=== PATIENT | female | born 1950 | race American Indian/Alaskan Native ===

== ENCOUNTER 2017-12-05 06:42 | Observation (INO) | payer MEDICARE ==
[2017-08-16 09:40] VITALS: BMI 36.8
[2017-12-05] MEDS ORDERED: Propofol 10 mg/ml Inj (20 ML) ONE ×4 (08:21→09:47)
--- NOTE | 2017-12-05 08:27 | CP.SDSHP ---
Same Day Surgery H & P - History Proposed Procedure: Screening colonoscopy Pre-Op Diagnosis: Screening for colorectal cancer - Previous Medical/Surgical History Cardiac: Hypertension Endocrine/Metabolic: Diabetes Comments: Anemia, hyperlipidemia, carcinoma right kidney Previous Surgical History: Cardiac cath with stents, rotator cuff - Allergies Allergies: Allergies levofloxacin [From Levaquin] Allergy (Verified 12/02/17 12:20) RASH morphine Allergy (Verified 12/02/17 12:20) ANAPHYLAXIS shellfish derived Allergy (Verified 12/02/17 12:20) RASH DYE Allergy (Uncoded 12/02/17 12:20) RASH - Current Medications Current Medications: See reconciliation sheet - Physical Exam General Appearance: WD WN female in NAD Vital Signs: Vital Signs 12/05/17 07:14 Temperature 97 F L Pulse Rate 72 Respiratory 19 Rate Blood Pressure 232/95 H O2 Sat by Pulse 97 Oximetry Mental Status: Alert & Oriented x3 Neuro: WNL Heart: WNL Lungs: WNL GI: WNL - {Optional Preform as Required} Abdomen: WNL - Impression Impression: Screening for colorectal cancer Pt. Evaluated Today:Candidate for Anesthesia & Procedure: Yes - Date & Time Date: 12/05/17 Time: 08:30 Short Stay Discharge - Short Stay Discharge Admitting Diagnosis/Reason for Visit: CHANGE IN BOWEL HABITS Disposition: HOME/ ROUTINE Referrals: Jhony Olivas MD [Primary Care Provider] -
[2017-12-05] MEDS ORDERED: Labetalol 5mg/ml (4ml) IVP ONE (08:51)
[2017-12-05] MEDS ORDERED: Lidocaine 2% Jelly (5 ml) TOP ONE (10:32)
--- NOTE | 2017-12-05 11:47 | CT ---
Date of service: 12/05/2017 PROCEDURE: CT Abdomen and Pelvis without intravenous contrast HISTORY: Abdominal distention post colonoscopy COMPARISON: None. TECHNIQUE: Contiguous images were obtained from the domes of the diaphragms to the upper thighs without the administration of intravenous contrast. Oral contrast was not administered. Radiation dose: Total exam DLP = 1016.5 mGy-cm. This CT exam was performed using one or more of the following dose reduction techniques: Automated exposure control, adjustment of the mA and/or kV according to patient size, and/or use of iterative reconstruction technique. FINDINGS: LOWER THORAX: Cardiomegaly. Coronary arterial and valvular calcifications. No focal consolidation or pleural effusion. Left lower lobe scarring. LIVER: Unremarkable. No gross lesion or ductal dilatation. GALLBLADDER AND BILE DUCTS: Unremarkable. PANCREAS: Unremarkable. No gross lesion or ductal dilatation. SPLEEN: Unremarkable. ADRENALS: Unremarkable. No mass. KIDNEYS AND URETERS: Right interpolar 3.9 x 3.5 x 3.9 cm heterogeneously hyperdense mass. Exophytic left lower pole 2.5 x 2.6 x 2.0 cm slightly hyperdense mass No hydronephrosis. No solid mass. VASCULATURE: Calcific atherosclerosis. No aortic aneurysm. BOWEL: Small sigmoid submucosal lipoma. No obstruction. No gross mural thickening. APPENDIX: No findings to suggest acute appendicitis. PERITONEUM: Fat containing umbilical hernia. No free fluid. No free air. LYMPH NODES: Unremarkable. No enlarged lymph nodes. BLADDER: Unremarkable. REPRODUCTIVE: Unremarkable. BONES: No acute fracture. Multilevel spinal degenerative changes. OTHER FINDINGS: None. IMPRESSION: Right interpolar 3.9 x 3.5 x 3.9 cm heterogeneously hyperdense mass. Multiphasic CT/MRI ( "renal mass protocol" ) is recommended for further evaluation. No pericolonic stranding. No evidence of perisplenic hematoma. Additional findings as above.
[2017-12-05] MEDS ORDERED: Aspirin 325 mg EC Tablets PO SCH (16:45)
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
[2017-12-05] MEDS ORDERED: FATTY ACIDS PO SCH (18:00)
[2017-12-05] MEDS ORDERED: OMEGA PO SCH (18:00)
[2017-12-05] MEDS ORDERED: Dextrose 50% SYRINGE Inj (50 ml) IVP PRN (18:04)
[2017-12-05] MEDS ORDERED: Dextrose 50% SYRINGE Inj (50 ml) IV PRN (18:04)
[2017-12-05] MEDS ORDERED: Glucagon Recombinant 1 mg Inj IM PRN (18:04)
[2017-12-05] MEDS: Divalproex 500 mg DR Tab PO SCH (18:49)
[2017-12-05 19:47] LABS: BASO % 0.5 % (0.0-2.0); EOS # 0.1 K/uL (0.0-0.7); HEMOGLOBIN 11.1 g/dL (11.0-16.0); LYMPH # 1.2 K/uL (1.0-4.3); LYMPH % 15.3 % (20.0-40.0); MEAN CELL VOLUME 84.6 fL (81.0-99.0); MEAN CORPUSCULAR HEMOGLOBIN 27.6 pg (27.0-31.0); MEAN CORPUSCULAR HGB CONC 32.6 g/dL (33.0-37.0); MEAN PLATELET VOLUME 8.4 fL (7.2-11.7); MONO # 0.4 K/uL (0.0-0.8); MONO % 5.2 % (0.0-10.0); NEUT # 6.1 K/uL (1.8-7.0); RBC 4.04 Mil/uL (3.80-5.20); RED CELL DISTRIBUTION WIDTH 22.8 % (11.5-14.5); WHITE BLOOD COUNT 7.8 K/uL (4.8-10.8)
[2017-12-05 20:02] LABS: ALB/GLOB RATIO 1.1 (1.0-2.1); ALBUMIN 3.5 g/dL (3.5-5.0); CALCIUM 9.4 mg/dl (8.6-10.4)
[2017-12-05] MEDS: (Novolog) Insulin Aspart, Recombinant 100 u/ml 10 ml vial SC SCH (21:32)
[2017-12-05] MEDS ORDERED: (Novolin R) Insulin Human Regular 100 units/ml vial SC SCH (22:00)
--- NOTE | 2017-12-05 23:08 | CP.PCM.CON ---
History of Present Illness - History of Present Illness History of Present Illness: 67 yo F w/ pmh of htn, CAD s/p stents (06/2016), R renal cell CA s/p cryoablation , DM and CKD IIIB/IV, presented for colonoscopy earlier today, found to have severely elevated systolic BP following the procedure and subsequently admitted for hypertensive urgency; nephrology being consulted for the same; Patient is well known to our outpatient service, seen in the office just 3 days ago; she had just returned from a trip to [place] that same day and was found to have BP 198/78 that she attributed to not having taken all of her meds as well as her rushing to get to the appointment; today, she reports not having taken her torsemide and valsartan today; she also reports getting into a verbal altercation with transportation dispatch manager on her way to the hospital this morning; she did have a headache following the colonoscopy which has mostly abated; patient denies any chest pain, palpitations or increased dyspnea; Review of Systems - Constitutional Constitutional: absent: Anorexia - EENT Eyes: absent: Change in Vision Nose/Mouth/Throat: absent: Sinus Pain, Sinus Pressure - Cardiovascular Cardiovascular: As Per HPI, Leg Edema - Respiratory Respiratory: absent: Cough - Gastrointestinal Additional comments: profuse BM yesterday after consuming bowel prep for colonscopy - Genitourinary Genitourinary: Urinary Frequency. absent: Dysuria - Musculoskeletal Additional comments: chronic shoulder pain, only taking tylenol; - Integumentary Integumentary: absent: Pruritus, Rash - Neurological Neurological: As Per HPI - Psychiatric Psychiatric: Mood Swings. absent: Anxiety Past Patient History - Infectious Disease Hx of Infectious Diseases: None - Tetanus Immunizations Tetanus Immunization: Unknown - Past Medical History & Family History Past Medical History?: Yes Pertinent Family History: mother was ESRD on dialysis - Past Social History Smoking Status: Never Smoked Alcohol: None Drugs: Denies - CARDIAC Hx Cardiac Disorders: Yes (CAD STENTS) Hx Hypercholesterolemia: Yes Hx Hypertension: Yes Hx Peripheral Edema: Yes (+2 ble pitting) Hx Peripheral Vascular Disease: Yes - PULMONARY Hx Respiratory Disorders: Yes Hx Asthma: Yes Hx Chronic Obstructive Pulmonary Disease (COPD): Yes Hx Pneumonia: Yes (11 yrs ago) Hx Sleep Apnea: Yes (cpap) Hx Tuberculosis: Yes (age 4) - NEUROLOGICAL Hx Neurological Disorder: Yes Hx Paralysis: No Hx Seizures: Yes (LAST AGE 19) Hx Transient Ischemic Attacks (TIA): Yes (07/2015 No hospitilization) - HEENT Hx HEENT Problems: Yes (USING READING GLASSES) 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], RIGHT EYE PARTIAL BLIND) - RENAL Hx Renal (Kidney) Cancer: Yes (RIGHT KIDNEY TUMOR, PARTIAL RIGHT NEPHRECTOMY) Other/Comment: Robotic surgery 2012, rt kidney partial nephrectomy - ENDOCRINE/METABOLIC Hx Endocrine Disorders: Yes Hx Adrenal Cancer: No Hx Diabetes Mellitus Type 2: Yes Hx Hyperthyroidism: No - HEMATOLOGICAL/ONCOLOGICAL Hx Blood Disorders: Yes Hx Anemia: Yes (Blood transfusion 2014) Hx Blood Transfusions: Yes Hx Blood Transfusion Reaction: No Hx Cancer: Yes (RT KIDNEY WITH TUMOR REMOVED) Hx Shingles: Yes Other/Comment: Partial Nephrectomy, right - INTEGUMENTARY Hx Dermatological Problems: No - MUSCULOSKELETAL/RHEUMATOLOGICAL Hx Musculoskeletal Disorders: Yes Hx Arthritis: Yes Hx Back Pain: Yes Hx Degenerative Joint Disease: Yes Hx Gout: Yes Hx Herniated Disk: Yes (Lumbar) Hx Unsteady Gait: Yes (Cane when out) Other/Comment: Right rotator cuff sx 1999, LEFT SHOULDER SURGERY, right achilles tendon repair 2007 - GASTROINTESTINAL Hx Gastrointestinal Disorders: Yes (CONSTIPATION) - GENITOURINARY/GYNECOLOGICAL Hx Genitourinary Disorders: No - PSYCHIATRIC Hx Psychophysiologic Disorder: Yes Hx Anxiety: Yes Hx Depression: Yes - SURGICAL HISTORY Hx Surgeries: Yes Hx Arthroscopy: Yes Hx Cardiac Catheterization: Yes (MANY YEARS AGO) Hx Coronary Stent: Yes Hx Eye Surgery: Yes (RETINAL SX) Hx Hysterectomy: Yes Hx Musculoskeletal Surgery: Yes (LEFT SHOULDER SURGERY) Hx Orthopedic Surgery: Yes Other/Comment: Excision right knee cyst, - ANESTHESIA Hx Anesthesia: Yes Hx Anesthesia Reactions: No Hx Malignant Hyperthermia: No Has any member of the family had a problem w/ anesthesia?: No Meds Allergies/Adverse Reactions: Allergies Allergy/AdvReac Type Severity Reaction Status Date / Time levofloxacin [From Levaquin] Allergy RASH Verified 12/02/17 12:20 morphine Allergy ANAPHYLAXIS Verified 12/02/17 12:20 shellfish derived Allergy RASH Verified 12/02/17 12:20 DYE Allergy RASH Uncoded 12/02/17 12:20 - Medications Medications: Current Medications Aspirin (Ecotrin) 81 mg PO DAILY [facility] Carvedilol (Coreg) 25 mg PO BID [facility] Last Admin: 12/05/17 18:49 Dose: 25 mg Clonidine HCl (Catapres) 0.2 mg PO TID [facility] Last Admin: 12/05/17 18:28 Dose: 0.2 mg Dextrose (Dextrose 50% Inj) 50 ml IVP ONCE PRN PRN Reason: Hypoglycemia Dextrose (Dextrose 50% Inj) 0 ml IV STAT PRN; Protocol PRN Reason: Hypoglycemia Protocol Dextrose (Glutose 15) 0 gm PO ONCE PRN; Protocol PRN Reason: Hypoglycemia Protocol Divalproex Sodium (Depakote Dr) 500 mg PO BID [facility] Last Admin: 12/05/17 18:49 Dose: 500 mg Ergocalciferol (Drisdol 50,000 Intl Units Cap) 1 cap PO QWK [facility] Glucagon (Glucagen Diagnostic Kit) 0 mg IM STAT PRN; Protocol PRN Reason: Hypoglycemia Protocol Hydralazine HCl (Apresoline) 25 mg PO TID [facility] Last Admin: 12/05/17 18:28 Dose: 25 mg Dextrose (Dextrose 5% In Water 1000 Ml) 1,000 mls @ 0 mls/hr IV .Q0M PRN; Protocol; Per Protocol PRN Reason: Hypoglycemia Protocol Insulin Aspart (Novolog) 0 unit SC ACHS [facility] PRN Reason: Protocol Last Admin: 12/05/17 21:32 Dose: Not Given Losartan Potassium (Cozaar) 100 mg PO DAILY [facility] Rosuvastatin Calcium (Crestor) 20 mg PO HS [facility] Last Admin: 12/05/17 21:33 Dose: 20 mg Tiotropium [place] (Spiriva Inhalation Handihaler Device) 1 inhaler INH RQD [facility] Tiotropium [place] (Spiriva) 18 mcg INH RQ24 [facility] Torsemide (Demadex) 20 mg PO BID [facility] Last Admin: 12/05/17 18:49 Dose: 20 mg Zolpidem Tartrate (Ambien) 5 mg PO HS [facility] Last Admin: 12/05/17 21:33 Dose: 5 mg Physical Exam - Constitutional Appears: Non-toxic, No Acute Distress - Eye Exam Eye Exam: Normal appearance. absent: Scleral icterus - ENT Exam ENT Exam: Mucous Membranes Moist - Respiratory Exam Respiratory Exam: Clear to Auscultation Bilateral. absent: Respiratory Distress - Cardiovascular Exam Cardiovascular Exam: RRR, +S1, +S2. absent: Gallop, Rubs - GI/Abdominal Exam GI & Abdominal Exam: Soft, Tenderness. absent: Distended - Exam Exam: absent: Bladder Distension - Extremities Exam Additional comments: bilateral 3+ lower leg edema (chronic); - Neurological Exam Neurological exam: Alert, Oriented x3 - Psychiatric Exam Psychiatric exam: Normal Affect, Normal Mood - Skin Skin Exam: Normal Color, Warm Results - Vital Signs Recent Vital Signs: Last Vital Signs Temp 98.2 F 12/05/17 18:00 Pulse 78 12/05/17 18:00 Resp 20 12/05/17 18:00 BP 220/80 H 12/05/17 18:49 Pulse Ox 96 12/05/17 18:00 - Labs Result Diagrams: 12/05/17 19:42 12/05/17 19:42 Labs: Laboratory Results - last 24 hr 12/05/17 12/05/17 12/05/17 07:09 19:42 19:42 WBC 7.8 RBC 4.04 Hgb 11.1 Hct 34.2 MCV 84.6 MCH 27.6 MCHC 32.6 L RDW 22.8 H Plt Count 358 D MPV 8.4 Neut % (Auto) 78.0 H Lymph % (Auto) 15.3 L Rush % (Auto) 5.2 Eos % (Auto) 1.0 Baso % (Auto) 0.5 Neut # (Auto) 6.1 Lymph # (Auto) 1.2 Rush # (Auto) 0.4 Eos # (Auto) 0.1 Baso # (Auto) 0.0 Sodium 144 Potassium 3.5 L Chloride 105 Carbon Dioxide 27 Anion Gap 15 BUN 32 H Creatinine 1.8 H Est GFR ( Amer) 34 Est GFR (Non-Af Amer) 28 POC Glucose (mg/dL) 105 Random Glucose 149 H Calcium 9.4 Phosphorus 3.6 Magnesium 2.0 Total Bilirubin 0.3 AST 22 ALT 22 Alkaline Phosphatase 87 Troponin I Total Protein 6.7 Albumin 3.5 Globulin 3.2 Albumin/Globulin Ratio 1.1 12/05/17 12/05/17 19:42 21:07 WBC RBC Hgb Hct MCV MCH MCHC RDW Plt Count MPV Neut % (Auto) Lymph % (Auto) Rush % (Auto) Eos % (Auto) Baso % (Auto) Neut # (Auto) Lymph # (Auto) Rush # (Auto) Eos # (Auto) Baso # (Auto) Sodium Potassium Chloride Carbon Dioxide Anion Gap BUN Creatinine Est GFR ( Amer) Est GFR (Non-Af Amer) POC Glucose (mg/dL) 160 H Random Glucose Calcium Phosphorus Magnesium Total Bilirubin AST ALT Alkaline Phosphatase Troponin I 0.0780 Total Protein Albumin Globulin Albumin/Globulin Ratio - Imaging and Cardiology CT scan - abdomen Status: Image reviewed by me Additional comment: R renal mass Assessment & Plan (1) Hypertensive urgency Assessment and Plan: In the setting of irregular medication compliance; patient has been on 5 anti- htn meds at home including high dose of diuretics with SBP generally in 140's- 150 range; renal artery stenosis has been suspected previously but patient has been refusing any IV dye study for further assessment; -Restart home meds; goal for now is SBP in 170's-180's range; -hydralazine 10 mg IVP for SBP > 180 -obtain CT abd/pelvis w/ IV contrast to assess for HOPE (will keep patient on gentle IVF prior to study); -EKG, troponin; -checking tristan/renin level (previously with elevated renin level); Status: Acute (2) CKD (chronic kidney disease) stage 3, GFR 30-59 ml/min Assessment and Plan: CKD IIIB/IV; relatively stable renal function with serum creatinine ~2.2 lately ; suspecting underlying renovascular disease but also with increased proteinuria lately that may be reflective of diabetic kidney disease; -avoid nephrotoxic agents; -avoid rapid reuction of BP (no more than 25% over first 24 hours) to prevent DAMON; Status: Chronic (3) Renal mass Assessment and Plan: History of R renal mass s/p cryoablation; new mass on imaging today not mentioned on renal US from 09/2017 although study may have been limited by patient's body habitus; -will obtain CT abd/pelvis with IV contrast; Status: Acute (4) Anemia in CKD (chronic kidney disease) Assessment and Plan: Hgb has been stable with patient receiving EPO injections from outpatient credit and collections representative; monitor; Status: Chronic (5) Chronic kidney disease-mineral and bone disorder Assessment and Plan: PTH has been mildly elevated; will repeat along with 25-OH vit D level; Status: Chronic
[2017-12-06 06:53] LABS: BASO % 0.3 % (0.0-2.0); EOS # 0.2 K/uL (0.0-0.7); EOS % 2.4 % (0.0-4.0); HEMOGLOBIN 9.4 g/dL (11.0-16.0); LYMPH # 1.8 K/uL (1.0-4.3); LYMPH % 26.5 % (20.0-40.0); MEAN CELL VOLUME 83.7 fL (81.0-99.0); MEAN CORPUSCULAR HEMOGLOBIN 27.4 pg (27.0-31.0); MEAN CORPUSCULAR HGB CONC 32.8 g/dL (33.0-37.0); MEAN PLATELET VOLUME 8.7 fL (7.2-11.7); MONO # 0.5 K/uL (0.0-0.8); MONO % 8.1 % (0.0-10.0); NEUT # 4.2 K/uL (1.8-7.0); NEUT % 62.7 % (50.0-75.0); NRBC % 0.1 % (0.0-2.0); RBC 3.44 Mil/uL (3.80-5.20); RED CELL DISTRIBUTION WIDTH 23.1 % (11.5-14.5); WHITE BLOOD COUNT 6.7 K/uL (4.8-10.8)
[2017-12-06 07:00] LABS: ALB/GLOB RATIO 1.1 (1.0-2.1); ALBUMIN 3.1 g/dL (3.5-5.0); CALCIUM 8.8 mg/dl (8.6-10.4)
[2017-12-06] MEDS: (Novolog) Insulin Aspart, Recombinant 100 u/ml 10 ml vial SC SCH ×5 (07:36→22:30)
--- NOTE | 2017-12-06 07:53 | CP.PCM.PN ---
<Elkin Ardon - Last Filed: 12/06/17 19:12> Subjective - Date & Time of Evaluation Date of Evaluation: 12/06/17 Time of Evaluation: 07:53 - Subjective Subjective: PGY-[address] Gomes Pt seen and examined at bedside. Pt in no acute distress. Pt has been sleeping well and tolerating meals. Pt denies any headaches, blurry vision, chest pains, palpitations. Pt feels comfortable to be discharged once BP is stabilized. Objective - Vital Signs/Intake and Output Vital Signs (last 24 hours): Temp Pulse Resp BP Pulse Ox 98.5 F 67 20 213/74 H 94 L 12/06/17 07:43 12/06/17 07:43 12/06/17 07:43 12/06/17 07:43 12/06/17 07:43 - Medications Medications: Current Medications Aspirin (Ecotrin) 81 mg PO DAILY [facility] Carvedilol (Coreg) 25 mg PO BID [facility] Last Admin: 12/05/17 18:49 Dose: 25 mg Clonidine HCl (Catapres) 0.2 mg PO TID [facility] Last Admin: 12/05/17 18:28 Dose: 0.2 mg Dextrose (Dextrose 50% Inj) 50 ml IVP ONCE PRN PRN Reason: Hypoglycemia Dextrose (Dextrose 50% Inj) 0 ml IV STAT PRN; Protocol PRN Reason: Hypoglycemia Protocol Dextrose (Glutose 15) 0 gm PO ONCE PRN; Protocol PRN Reason: Hypoglycemia Protocol Divalproex Sodium (Depakote Dr) 500 mg PO BID [facility] Last Admin: 12/05/17 18:49 Dose: 500 mg Ergocalciferol (Drisdol 50,000 Intl Units Cap) 1 cap PO QWK [facility] Glucagon (Glucagen Diagnostic Kit) 0 mg IM STAT PRN; Protocol PRN Reason: Hypoglycemia Protocol Hydralazine HCl (Apresoline) 25 mg PO TID [facility] Last Admin: 12/05/17 18:28 Dose: 25 mg Dextrose (Dextrose 5% In Water 1000 Ml) 1,000 mls @ 0 mls/hr IV .Q0M PRN; Protocol; Per Protocol PRN Reason: Hypoglycemia Protocol Sodium Chloride (Sodium Chloride 0.9%) 1,000 mls @ 75 mls/hr IV .[id number] [facility] Insulin Aspart (Novolog) 0 unit SC ACHS [facility] PRN Reason: Protocol Last Admin: 12/06/17 07:36 Dose: Not Given Losartan Potassium (Cozaar) 50 mg PO DAILY [facility] Rosuvastatin Calcium (Crestor) 20 mg PO HS [facility] Last Admin: 12/05/17 21:33 Dose: 20 mg Tiotropium [place] (Spiriva Inhalation Handihaler Device) 1 inhaler INH RQD [facility] Tiotropium [place] (Spiriva) 18 mcg INH RQ24 [facility] Torsemide (Demadex) 20 mg PO BID [facility] Last Admin: 12/05/17 18:49 Dose: 20 mg Zolpidem Tartrate (Ambien) 5 mg PO [facility] Last Admin: 12/05/17 21:33 Dose: 5 mg - Labs Labs: 12/06/17 06:26 12/06/17 06:26 - Constitutional Appears: Well, Non-toxic, No Acute Distress - Head Exam Head Exam: ATRAUMATIC, NORMAL INSPECTION - Eye Exam Eye Exam: EOMI, Normal appearance - ENT Exam ENT Exam: Mucous Membranes Moist - Neck Exam Neck Exam: Full ROM - Respiratory Exam Respiratory Exam: Clear to Ausculation Bilateral, NORMAL BREATHING PATTERN. absent: Decreased Breath Sounds - Cardiovascular Exam Cardiovascular Exam: REGULAR RHYTHM, +S1, +S2 - GI/Abdominal Exam GI & Abdominal Exam: Soft, Normal Bowel Sounds. absent: Tenderness - Extremities Exam Extremities Exam: absent: Pedal Edema Additional comments: 1+ pitting edema in lower extremities b/l - Neurological Exam Neurological Exam: Alert, Awake, CN II-XII Intact, Oriented x3 - Skin Skin Exam: Normal Color, Warm. absent: Abrasion Assessment and Plan - Assessment and Plan (Free Text) Assessment: 1) Hypertensive Urgency -Nephro consulted: d/w Dr. Rosales - help appreciated * given clonidine .2 mg STAT today * restart home medications * Goal 170/80 * possible renal artery stenosis * f/u AM labs, electrolytes, plasma Renin, plasma Aldosterone * CT head negative * CT Abd/Pelvis: R interpolar heterogenous hyperdense mass - CT/MRI f/u study recommended * BP today 211/72 this AM; dropped to 182/71 in afternoon * Per Dr. Rosales, will plan to d/c tomorrow if BP remains at goal - Coreg 25mg po bid - Clonidine 0.2mg po tid - Hydralazine 25mg po tid - Losartan 100mg po daily - Torsemide 20mg po bid - ASA 81 daily 2) Bilateral lower extremity swelling - Lasix 40 mg IV once - restart home Torsemide 3) Hyperlipidemia - home Rosuvastatin 20mg po HS 4) Diabetes Mellitus, type 2 - Accucheck ACHS - ISS moderate - hypoglycemia protocol - f/u Hgb A1c - holding other home diabetes Rx 5) Chronic Kidney Disease, Stage 3b - GFR from 12/06: 24 - avoid nephrotoxic agents -K 3.2 today, will hold off on repletion unless continues to drop 2/2 CKD 6) Chronic Obstructive Pulmonary Disease - home Spiriva 18mcg INH daily 7) CAD s/p stents - ASA 81mg po daily - ACEi/ARB contraindicated 2/2 kidney function, poss HOPE 8) PPX GI: not indicated DVT: contraindicated 2/2 recent surgery with Bx taken - Cont home Depakote 500mg po bid - Cont home Ergocalciferol 1 cap po q7d - Cont Zolpidem 5mg po HS - IVF: not indicated - HHD, renal non dialysis diet d/w Dr. Mireya Ardon PGY-1 <Sebastian Gomes - Last Filed: 12/07/17 07:25> Objective - Vital Signs/Intake and Output Vital Signs (last 24 hours): Temp Pulse Resp BP Pulse Ox 98.1 F 64 20 210/74 H 95 12/07/17 05:35 12/07/17 05:35 12/07/17 05:35 12/07/17 05:35 12/07/17 05:35 - Medications Medications: Current Medications Aspirin (Ecotrin) 81 mg PO DAILY [facility] Last Admin: 12/06/17 11:30 Dose: 81 mg Carvedilol (Coreg) 25 mg PO BID [facility] Last Admin: 12/06/17 17:39 Dose: 25 mg Clonidine HCl (Catapres) 0.2 mg PO TID [facility] Last Admin: 12/06/17 17:38 Dose: 0.2 mg Dextrose (Dextrose 50% Inj) 50 ml IVP ONCE PRN PRN Reason: Hypoglycemia Dextrose (Dextrose 50% Inj) 0 ml IV STAT PRN; Protocol PRN Reason: Hypoglycemia Protocol Dextrose (Glutose 15) 0 gm PO ONCE PRN; Protocol PRN Reason: Hypoglycemia Protocol Divalproex Sodium (Depakote Dr) 500 mg PO BID [facility] Last Admin: 12/06/17 17:39 Dose: 500 mg Ergocalciferol (Drisdol 50,000 Intl Units Cap) 1 cap PO QWK [facility] Last Admin: 12/06/17 10:36 Dose: 1 cap Glucagon (Glucagen Diagnostic Kit) 0 mg IM STAT PRN; Protocol PRN Reason: Hypoglycemia Protocol Hydralazine HCl (Apresoline) 50 mg PO Q6H [facility] Last Admin: 12/07/17 05:39 Dose: 50 mg Dextrose (Dextrose 5% In Water 1000 Ml) 1,000 mls @ 0 mls/hr IV .Q0M PRN; Protocol; Per Protocol PRN Reason: Hypoglycemia Protocol Sodium Chloride (Sodium Chloride 0.9%) 1,000 mls @ 75 mls/hr IV .[id number] [facility] Insulin Aspart (Novolog) 0 unit SC ACHS [facility] PRN Reason: Protocol Last Admin: 12/06/17 22:30 Dose: Not Given Losartan Potassium (Cozaar) 50 mg PO DAILY [facility] Last Admin: 12/06/17 10:37 Dose: Not Given Rosuvastatin Calcium (Crestor) 20 mg PO [facility] Last Admin: 12/06/17 22:10 Dose: 20 mg Tiotropium [place] (Spiriva Inhalation Handihaler Device) 1 inhaler INH RQD [facility] Tiotropium [place] (Spiriva) 18 mcg INH RQ24 [facility] Torsemide (Demadex) 20 mg PO BID [facility] Last Admin: 12/06/17 10:37 Dose: 20 mg Zolpidem Tartrate (Ambien) 5 mg PO [facility] Last Admin: 12/06/17 22:10 Dose: 5 mg - Labs Labs: 12/06/17 06:26 12/06/17 06:26 Attending/Attestation - Attestation I have personally seen and examined this patient.: Yes I have fully participated in the care of the patient.: Yes I have reviewed all pertinent clinical information, including history, physical exam and plan: Yes Notes (Text): Seen and examined by me.Patient has no complain lying comfortable.no headache,no N &V Her blood pressure is not controlled well Discussed with Dr Rosales who increased his hydralazine. K added for hypokalemia. Dr Rosales discussed with radiologist Dr Dave about her right renal mass? Its likely hemorrhagic cyst. We will monitor BP. Observe one more day due to her uncontrolled BP 1.Hypertensive urgency 2.chronic renal failure 3.Suspected renal artery stenosis 4.Renal mass/ablation of her right kidney mass in the past 5.Anemia 6.Hypokalemia 7.S/P routine colonoscopy Discussed with resident and I agree with the assessment and the plan
[2017-12-06 08:05] LABS: SQUAMOUS EPITHIAL 1 /hpf (0-5); URINE BACTERIA MOD (<OCC); URINE BILIRUBIN NEGATIVE (NEGATIVE); URINE BLOOD NEGATIVE (NEGATIVE); URINE CLARITY Clear (Clear); URINE COLOR Yellow (YELLOW); URINE GLUCOSE (UA) NORMAL (Normal); URINE HYALINE CAST 0-2 /lpf (0-2); URINE LEUKOCYTE ESTERASE NEG Leu/uL (Negative); URINE PROTEIN 3+ mg/dL (NEGATIVE); URINE UROBILINOGEN NORMAL mg/dL (0.2-1.0)
[2017-12-06] MEDS ORDERED: Home Med 1 UNIT (Linagliptin [Tradjenta] 5 MG) PO SCH (10:00)
[2017-12-06] MEDS ORDERED: Ergocalciferol 50,000 Intl Units Cap PO SCH (10:00)
[2017-12-06] MEDS: Divalproex 500 mg DR Tab PO SCH ×2 (10:37→17:39)
--- NOTE | 2017-12-06 11:25 | CT ---
Date of service: 12/06/2017 PROCEDURE: CT HEAD WITHOUT CONTRAST. HISTORY: headache, uncontrolled htn COMPARISON: None available. TECHNIQUE: Axial computed tomography images were obtained through the head/brain without intravenous contrast. Radiation dose: Total exam DLP = 886 mGy-cm. This CT exam was performed using one or more of the following dose reduction techniques: Automated exposure control, adjustment of the mA and/or kV according to patient size, and/or use of iterative reconstruction technique. FINDINGS: HEMORRHAGE: No intracranial hemorrhage. BRAIN: No mass effect or edema. There is generalized cerebral atrophy. Left thalamic and left basal ganglionic lacunar infarcts are suggested. VENTRICLES: Mildly prominent commensurate with the degree of atrophy CALVARIUM: Unremarkable. PARANASAL SINUSES: There is lobulated soft tissue probably a underlying retention cyst and/or polyp in the lateral right sphenoid sinus extension. Small ethmoidal mucosal thickening inflammatory changes are also suggested. MASTOID AIR CELLS: Unremarkable as visualized. No inflammatory changes. OTHER FINDINGS: The left globe is abnormally small with coarse calcifications within it -prior trauma chronic is inferred. Correlate clinically. IMPRESSION: No hemorrhage or mass effect. Dysmorphic partly calcified - asymmetrically smaller left globe- remote trauma inferred. Correlate clinically.
[2017-12-06] MEDS ORDERED: Potassium Chloride 20 mEq ER Tab PO ONE (12:24)
[2017-12-06] MEDS ORDERED: Sodium Chloride 0.9% 1,000 ML IV SCH (12:30)
--- NOTE | 2017-12-06 13:21 | CP.PCM.PN ---
<Bunny Amaya - Last Filed: 12/06/17 15:38> Subjective - Date & Time of Evaluation Date of Evaluation: 12/06/17 Time of Evaluation: 11:45 - Subjective Subjective: Bunny Amaya, PGY1. Nephrology progress note for Dr Rosales Patient seen and examined at bedside. She had headache last night but now resolved. She addressed the concern for being on dialysis in the future. She denied chest pain, dizziness, palpitations, SOB, disphoresis. Objective - Vital Signs/Intake and Output Vital Signs (last 24 hours): Temp Pulse Resp BP Pulse Ox 98.5 F 67 20 211/72 H 94 L 12/06/17 07:43 12/06/17 12:43 12/06/17 07:43 12/06/17 12:43 12/06/17 08:00 - Medications Medications: Current Medications Aspirin (Ecotrin) 81 mg PO DAILY [facility] Last Admin: 12/06/17 11:30 Dose: 81 mg Carvedilol (Coreg) 25 mg PO BID [facility] Last Admin: 12/06/17 10:38 Dose: 25 mg Clonidine HCl (Catapres) 0.2 mg PO TID [facility] Last Admin: 12/06/17 10:37 Dose: Not Given Dextrose (Dextrose 50% Inj) 50 ml IVP ONCE PRN PRN Reason: Hypoglycemia Dextrose (Dextrose 50% Inj) 0 ml IV STAT PRN; Protocol PRN Reason: Hypoglycemia Protocol Dextrose (Glutose 15) 0 gm PO ONCE PRN; Protocol PRN Reason: Hypoglycemia Protocol Divalproex Sodium (Depakote Dr) 500 mg PO BID [facility] Last Admin: 12/06/17 10:37 Dose: 500 mg Ergocalciferol (Drisdol 50,000 Intl Units Cap) 1 cap PO QWK [facility] Last Admin: 12/06/17 10:36 Dose: 1 cap Glucagon (Glucagen Diagnostic Kit) 0 mg IM STAT PRN; Protocol PRN Reason: Hypoglycemia Protocol Hydralazine HCl (Apresoline) 50 mg PO Q6H [facility] Last Admin: 12/06/17 12:41 Dose: 50 mg Dextrose (Dextrose 5% In Water 1000 Ml) 1,000 mls @ 0 mls/hr IV .Q0M PRN; Protocol; Per Protocol PRN Reason: Hypoglycemia Protocol Sodium Chloride (Sodium Chloride 0.9%) 1,000 mls @ 75 mls/hr IV .[id number] [facility] Sodium Chloride (Sodium Chloride 0.9%) 1,000 mls @ 250 mls/hr IV .Q4H [facility] Stop: 12/06/17 13:31 Last Admin: 12/06/17 12:42 Dose: 250 mls/hr Insulin Aspart (Novolog) 0 unit SC ACHS [facility] PRN Reason: Protocol Last Admin: 12/06/17 12:06 Dose: Not Given Losartan Potassium (Cozaar) 50 mg PO DAILY [facility] Last Admin: 12/06/17 10:37 Dose: Not Given Rosuvastatin Calcium (Crestor) 20 mg PO [facility] Last Admin: 12/05/17 21:33 Dose: 20 mg Tiotropium [place] (Spiriva Inhalation Handihaler Device) 1 inhaler INH RQD [facility] Tiotropium [place] (Spiriva) 18 mcg INH RQ24 [facility] Torsemide (Demadex) 20 mg PO BID [facility] Last Admin: 12/06/17 10:37 Dose: 20 mg Zolpidem Tartrate (Ambien) 5 mg PO [facility] Last Admin: 12/05/17 21:33 Dose: 5 mg - Labs Labs: 12/06/17 06:26 12/06/17 06:26 - Constitutional Appears: Well, No Acute Distress - Head Exam Head Exam: ATRAUMATIC, NORMAL INSPECTION, NORMOCEPHALIC - Eye Exam Eye Exam: EOMI, Normal appearance, PERRL Pupil Exam: NORMAL ACCOMODATION, PERRL - ENT Exam ENT Exam: Mucous Membranes Moist, Normal Exam - Neck Exam Neck Exam: Full ROM, Normal Inspection. absent: Lymphadenopathy - Respiratory Exam Respiratory Exam: Clear to Ausculation Bilateral, NORMAL BREATHING PATTERN - Cardiovascular Exam Cardiovascular Exam: REGULAR RHYTHM, +S1, +S2. absent: Murmur - GI/Abdominal Exam GI & Abdominal Exam: Soft, Tenderness, Normal Bowel Sounds Additional comments: obese abdomen mild tenderness to palpate alina-umbilical area - Rectal Exam Rectal Exam: Deferred - Extremities Exam Additional comments: b/l LL edema - Back Exam Back Exam: NORMAL INSPECTION - Neurological Exam Neurological Exam: Alert, Awake, CN II-XII Intact, Normal Gait, Oriented x3 - Psychiatric Exam Psychiatric exam: Normal Affect, Normal Mood - Skin Skin Exam: Dry, Intact, Normal Color, Warm Assessment and Plan - Assessment and Plan (Free Text) Assessment: 67 y/o female with PMH of HTN, CAD s/p PTCA with stent placed, CKD IIIB/IV, right renal mass s/p cryoablation admitted for hypertensive urgency s/p colonscopy done yesterday. Plan: (1) Hypertensive urgency -likely due to medication non compliance vs renal artery stenosis vs renal mass -BP still uncontrolled 215/79 -hydralazine dose increased to 50mg Q6H -continue monitoring closely. goal SBP in 170's-180's -hydralazine 10 mg IVP for SBP > 180 -continue home meds losartan, torsimed, clonidine, coreg, hydralazine -tristan/renin level pending (2) Renal mass -CT abdomen showed right renal mass. Previous US few month ago did not show any lesion. -Case discussed with radiologist, mass is heterogenous, likely blood, can follow up with IR as an outpatient. mild right renal artery compression by the mass. -Radiology recommended against CT with contrast because of decreased GFR (now 24) -History of R renal mass s/p cryoablation (3) Anemia in CKD (chronic kidney disease) -H/H stable -Patient was on outpatient EPO (4) CKD (chronic kidney disease) stage 3, GFR 30-59 ml/min -CKD IIIB/IV likely due to diabetes vs renovascular disease -BUN/Cr 35/2.4 -Urinalaysis protein 4 -A1C 7 -Maintain renal perfusion and avoid rapid reduction in BP -avoid nephrotoxic agents (5) Chronic kidney disease-mineral and bone disorder -vitamin D level 34.5 -continue Ergocalceferol -PTH pending -electrolytes balanced Case reviewed and discussed with Dr Rosales Further recs as per Dr Rosales <Sebastian Gomes - Last Filed: 12/06/17 19:28> Objective - Vital Signs/Intake and Output Vital Signs (last 24 hours): Temp Pulse Resp BP Pulse Ox 98.3 F 61 20 182/71 H 97 12/06/17 16:00 12/06/17 16:00 12/06/17 16:00 12/06/17 17:39 12/06/17 16:00 Intake and Output: 12/06/17 12/07/17 18:59 06:59 Intake Total 1350 Balance 1350 - Medications Medications: Current Medications Aspirin (Ecotrin) 81 mg PO DAILY [facility] Last Admin: 12/06/17 11:30 Dose: 81 mg Carvedilol (Coreg) 25 mg PO BID [facility] Last Admin: 12/06/17 17:39 Dose: 25 mg Clonidine HCl (Catapres) 0.2 mg PO TID [facility] Last Admin: 12/06/17 17:38 Dose: 0.2 mg Dextrose (Dextrose 50% Inj) 50 ml IVP ONCE PRN PRN Reason: Hypoglycemia Dextrose (Dextrose 50% Inj) 0 ml IV STAT PRN; Protocol PRN Reason: Hypoglycemia Protocol Dextrose (Glutose 15) 0 gm PO ONCE PRN; Protocol PRN Reason: Hypoglycemia Protocol Divalproex Sodium (Depakote Dr) 500 mg PO BID [facility] Last Admin: 12/06/17 17:39 Dose: 500 mg Ergocalciferol (Drisdol 50,000 Intl Units Cap) 1 cap PO QWK [facility] Last Admin: 12/06/17 10:36 Dose: 1 cap Glucagon (Glucagen Diagnostic Kit) 0 mg IM STAT PRN; Protocol PRN Reason: Hypoglycemia Protocol Hydralazine HCl (Apresoline) 50 mg PO Q6H [facility] Last Admin: 12/06/17 17:38 Dose: 50 mg Dextrose (Dextrose 5% In Water 1000 Ml) 1,000 mls @ 0 mls/hr IV .Q0M PRN; Protocol; Per Protocol PRN Reason: Hypoglycemia Protocol Sodium Chloride (Sodium Chloride 0.9%) 1,000 mls @ 75 mls/hr IV .[id number] [facility] Insulin Aspart (Novolog) 0 unit SC ACHS [facility] PRN Reason: Protocol Last Admin: 12/06/17 17:39 Dose: Not Given Losartan Potassium (Cozaar) 50 mg PO DAILY [facility] Last Admin: 12/06/17 10:37 Dose: Not Given Rosuvastatin Calcium (Crestor) 20 mg PO HS [facility] Last Admin: 12/05/17 21:33 Dose: 20 mg Tiotropium [place] (Spiriva Inhalation Handihaler Device) 1 inhaler INH RQD [facility] Tiotropium [place] (Spiriva) 18 mcg INH RQ24 [facility] Torsemide (Demadex) 20 mg PO BID [facility] Last Admin: 12/06/17 10:37 Dose: 20 mg Zolpidem Tartrate (Ambien) 5 mg PO HS [facility] Last Admin: 12/05/17 21:33 Dose: 5 mg - Labs Labs: 12/06/17 06:26 12/06/17 06:26 Attending/Attestation - Attestation I have personally seen and examined this patient.: Yes I have fully participated in the care of the patient.: Yes I have reviewed all pertinent clinical information, including history, physical exam and plan: Yes Notes (Text): Her blood pressure is high. Discussed with Dr Rosales who increased his hydralazine. K added for hypokalemia. Dr Rosales discussed with radiologist Dr Dave about her right renal mass? Its likely hemorrhagic cyst. We will monitor BP. Observe one more day due to her uncontrolled BP Discussed with resident and I agree with the assessment and the plan 12/06/17 19:31 <Faraz Rosales - Last Filed: 12/06/17 23:42> Objective - Vital Signs/Intake and Output Vital Signs (last 24 hours): Temp Pulse Resp BP Pulse Ox 98.3 F 61 20 182/71 H 97 12/06/17 16:00 12/06/17 16:00 12/06/17 16:00 12/06/17 17:39 12/06/17 16:00 Intake and Output: 12/06/17 12/07/17 18:59 06:59 Intake Total 1350 Balance 1350 - Medications Medications: Current Medications Aspirin (Ecotrin) 81 mg PO DAILY [facility] Last Admin: 12/06/17 11:30 Dose: 81 mg Carvedilol (Coreg) 25 mg PO BID [facility] Last Admin: 12/06/17 17:39 Dose: 25 mg Clonidine HCl (Catapres) 0.2 mg PO TID [facility] Last Admin: 12/06/17 17:38 Dose: 0.2 mg Dextrose (Dextrose 50% Inj) 50 ml IVP ONCE PRN PRN Reason: Hypoglycemia Dextrose (Dextrose 50% Inj) 0 ml IV STAT PRN; Protocol PRN Reason: Hypoglycemia Protocol Dextrose (Glutose 15) 0 gm PO ONCE PRN; Protocol PRN Reason: Hypoglycemia Protocol Divalproex Sodium (Depakote Dr) 500 mg PO BID [facility] Last Admin: 12/06/17 17:39 Dose: 500 mg Ergocalciferol (Drisdol 50,000 Intl Units Cap) 1 cap PO QWK [facility] Last Admin: 12/06/17 10:36 Dose: 1 cap Glucagon (Glucagen Diagnostic Kit) 0 mg IM STAT PRN; Protocol PRN Reason: Hypoglycemia Protocol Hydralazine HCl (Apresoline) 50 mg PO Q6H [facility] Last Admin: 12/06/17 17:38 Dose: 50 mg Dextrose (Dextrose 5% In Water 1000 Ml) 1,000 mls @ 0 mls/hr IV .Q0M PRN; Protocol; Per Protocol PRN Reason: Hypoglycemia Protocol Sodium Chloride (Sodium Chloride 0.9%) 1,000 mls @ 75 mls/hr IV .[id number] [facility] Insulin Aspart (Novolog) 0 unit SC ACHS [facility] PRN Reason: Protocol Last Admin: 12/06/17 22:30 Dose: Not Given Losartan Potassium (Cozaar) 50 mg PO DAILY [facility] Last Admin: 12/06/17 10:37 Dose: Not Given Rosuvastatin Calcium (Crestor) 20 mg PO HS [facility] Last Admin: 12/06/17 22:10 Dose: 20 mg Tiotropium [place] (Spiriva Inhalation Handihaler Device) 1 inhaler INH RQD [facility] Tiotropium [place] (Spiriva) 18 mcg INH RQ24 [facility] Torsemide (Demadex) 20 mg PO BID [facility] Last Admin: 12/06/17 10:37 Dose: 20 mg Zolpidem Tartrate (Ambien) 5 mg PO HS [facility] Last Admin: 12/06/17 22:10 Dose: 5 mg - Labs Labs: 12/06/17 06:26 12/06/17 06:26 Assessment and Plan (1) Hypertensive urgency Status: Acute (2) CKD (chronic kidney disease) stage 3, GFR 30-59 ml/min Status: Chronic (3) Renal mass Status: Acute (4) Anemia in CKD (chronic kidney disease) Status: Chronic (5) Chronic kidney disease-mineral and bone disorder Status: Chronic
--- NOTE | 2017-12-07 07:27 | CP.PCM.PN ---
<Elkin Ardon - Last Filed: 12/07/17 16:53> Subjective - Date & Time of Evaluation Date of Evaluation: 12/07/17 Time of Evaluation: 07:27 - Subjective Subjective: PGY-[address] Gomes Patient seen and examined at bedside. She is complaining of R eye blurry vision which has been the same through her hospital stay. She is also constipated and her last BM was on during her colonscopy bowel prep. She has diffuse abdominal pain which has been present since her colonoscopy. Patient says her lower extremity edema has remained the same. She is tolerating meals, sleeping well. Pt denies any headaches, dizziness, nausea, or diffuse or localized weakness. Her SBP last night was in the 210s and pt was given .2mg clonidine stat, was switched to .3mg TID clonidine with first dose this morning for persistently elevated BP. Pt not complaining of any dysuria or inceased frequency. Objective - Vital Signs/Intake and Output Vital Signs (last 24 hours): Temp Pulse Resp BP Pulse Ox 98.1 F 64 20 210/74 H 95 12/07/17 05:35 12/07/17 05:35 12/07/17 05:35 12/07/17 05:35 12/07/17 05:35 - Medications Medications: Current Medications Aspirin (Ecotrin) 81 mg PO DAILY [facility] Last Admin: 12/06/17 11:30 Dose: 81 mg Carvedilol (Coreg) 25 mg PO BID [facility] Last Admin: 12/06/17 17:39 Dose: 25 mg Clonidine HCl (Catapres) 0.2 mg PO TID [facility] Last Admin: 12/06/17 17:38 Dose: 0.2 mg Dextrose (Dextrose 50% Inj) 50 ml IVP ONCE PRN PRN Reason: Hypoglycemia Dextrose (Dextrose 50% Inj) 0 ml IV STAT PRN; Protocol PRN Reason: Hypoglycemia Protocol Dextrose (Glutose 15) 0 gm PO ONCE PRN; Protocol PRN Reason: Hypoglycemia Protocol Divalproex Sodium (Depakote Dr) 500 mg PO BID [facility] Last Admin: 12/06/17 17:39 Dose: 500 mg Ergocalciferol (Drisdol 50,000 Intl Units Cap) 1 cap PO QWK [facility] Last Admin: 12/06/17 10:36 Dose: 1 cap Glucagon (Glucagen Diagnostic Kit) 0 mg IM STAT PRN; Protocol PRN Reason: Hypoglycemia Protocol Hydralazine HCl (Apresoline) 50 mg PO Q6H [facility] Last Admin: 12/07/17 05:39 Dose: 50 mg Dextrose (Dextrose 5% In Water 1000 Ml) 1,000 mls @ 0 mls/hr IV .Q0M PRN; Protocol; Per Protocol PRN Reason: Hypoglycemia Protocol Sodium Chloride (Sodium Chloride 0.9%) 1,000 mls @ 75 mls/hr IV .[id number] [facility] Insulin Aspart (Novolog) 0 unit SC ACHS [facility] PRN Reason: Protocol Last Admin: 12/06/17 22:30 Dose: Not Given Losartan Potassium (Cozaar) 50 mg PO DAILY [facility] Last Admin: 12/06/17 10:37 Dose: Not Given Rosuvastatin Calcium (Crestor) 20 mg PO HS [facility] Last Admin: 12/06/17 22:10 Dose: 20 mg Tiotropium [place] (Spiriva Inhalation Handihaler Device) 1 inhaler INH RQD [facility] Tiotropium [place] (Spiriva) 18 mcg INH RQ24 [facility] Torsemide (Demadex) 20 mg PO BID [facility] Last Admin: 12/06/17 10:37 Dose: 20 mg Zolpidem Tartrate (Ambien) 5 mg PO [facility] Last Admin: 12/06/17 22:10 Dose: 5 mg - Labs Labs: 12/06/17 06:26 12/06/17 06:26 - Constitutional Appears: Well, No Acute Distress - Head Exam Head Exam: ATRAUMATIC, NORMAL INSPECTION - Eye Exam Eye Exam: Normal appearance Pupil Exam: NORMAL ACCOMODATION, PERRL - ENT Exam ENT Exam: Mucous Membranes Moist - Neck Exam Neck Exam: Full ROM - Respiratory Exam Respiratory Exam: Clear to Ausculation Bilateral - Cardiovascular Exam Cardiovascular Exam: REGULAR RHYTHM, +S1, +S2 - Extremities Exam Extremities Exam: Pedal Edema - Neurological Exam Neurological Exam: Alert, Awake, CN II-XII Intact - Psychiatric Exam Psychiatric exam: Normal Affect, Normal Mood - Skin Skin Exam: Dry, Normal Color Assessment and Plan - Assessment and Plan (Free Text) Assessment: 1) Hypertensive Urgency -Nephro consulted: d/w Dr. Rosales - help appreciated * Pt received .2 mg clonidine stat overnight for BP 210s/70s * SBP remained in 210s after her .2mg clonidine routine dose this morning. Changed to .3mg Clonidine TID with first dose started this morning. Will consider increasing her Losartan if BP continues to remain elevated. Continue to monitor BP * restarted home medications * Goal 170/80 * possible renal artery stenosis * f/u AM labs, electrolytes, plasma Renin, plasma Aldosterone * CT head negative * CT Abd/Pelvis: R interpolar heterogenous hyperdense mass - CT/MRI f/u study recommended * Per Dr. Rosales, will plan to DC once BP stabilizes. - Coreg 25mg po bid - Clonidine 0.2mg po tid - Hydralazine 25mg po tid - Losartan 100mg po daily - Torsemide 20mg po bid - ASA 81 daily 2) Bilateral lower extremity swelling - Lasix 40 mg IV once - restart home Torsemide 3) Hyperlipidemia - home Rosuvastatin 20mg po HS 4) Diabetes Mellitus, type 2 - Accucheck ACHS - ISS moderate - hypoglycemia protocol - f/u Hgb A1c - holding other home diabetes Rx 5) Chronic Kidney Disease, Stage 3b - GFR from 12/06: 24 - avoid nephrotoxic agents -K 3.2 today yesterday, will hold off on repletion unless continues to drop 2/2 CKD. 6) Chronic Obstructive Pulmonary Disease - home Spiriva 18mcg INH daily 7) CAD s/p stents - ASA 81mg po daily - ACEi/ARB contraindicated 2/2 kidney function, poss HOPE 8) Constipation -Colace 100 mg PO BID 9) PPX GI: not indicated DVT: contraindicated 2/2 recent surgery with Bx taken - Cont home Depakote 500mg po bid - Cont home Ergocalciferol 1 cap po q7d - Cont Zolpidem 5mg po HS - IVF: not indicated - HHD, renal non dialysis diet d/w Dr. Mireya Ardon PGY-1 <Sebastian Gomes - Last Filed: 12/07/17 17:34> Objective - Vital Signs/Intake and Output Vital Signs (last 24 hours): Temp Pulse Resp BP Pulse Ox 97.9 F 65 20 191/71 H 96 12/07/17 15:28 12/07/17 15:28 12/07/17 15:28 12/07/17 15:28 12/07/17 15:28 Intake and Output: 12/07/17 12/07/17 06:59 18:59 Intake Total 50 1500 Balance 50 1500 - Medications Medications: Current Medications Aspirin (Ecotrin) 81 mg PO DAILY [facility] Last Admin: 12/07/17 10:33 Dose: 81 mg Carvedilol (Coreg) 25 mg PO BID [facility] Last Admin: 12/07/17 10:30 Dose: 25 mg Clonidine HCl (Catapres) 0.3 mg PO TID [facility] Last Admin: 12/07/17 14:13 Dose: 0.3 mg Dextrose (Dextrose 50% Inj) 50 ml IVP ONCE PRN PRN Reason: Hypoglycemia Dextrose (Dextrose 50% Inj) 0 ml IV STAT PRN; Protocol PRN Reason: Hypoglycemia Protocol Dextrose (Glutose 15) 0 gm PO ONCE PRN; Protocol PRN Reason: Hypoglycemia Protocol Divalproex Sodium (Depakote Dr) 500 mg PO BID [facility] Last Admin: 12/07/17 10:30 Dose: 500 mg Docusate Sodium (Colace) 100 mg PO BID [facility] Ergocalciferol (Drisdol 50,000 Intl Units Cap) 1 cap PO QWK [facility] Last Admin: 12/06/17 10:36 Dose: 1 cap Glucagon (Glucagen Diagnostic Kit) 0 mg IM STAT PRN; Protocol PRN Reason: Hypoglycemia Protocol Hydralazine HCl (Apresoline) 100 mg PO Q6H [facility] Last Admin: 12/07/17 13:05 Dose: 100 mg Dextrose (Dextrose 5% In Water 1000 Ml) 1,000 mls @ 0 mls/hr IV .Q0M PRN; Protocol; Per Protocol PRN Reason: Hypoglycemia Protocol Sodium Chloride (Sodium Chloride 0.9%) 1,000 mls @ 75 mls/hr IV .[id number] [facility] Last Admin: 12/07/17 16:57 Dose: 75 mls/hr Insulin Aspart (Novolog) 0 unit SC ACHS [facility] PRN Reason: Protocol Last Admin: 12/07/17 12:54 Dose: Not Given Losartan Potassium (Cozaar) 50 mg PO DAILY [facility] Last Admin: 12/07/17 10:30 Dose: 50 mg Rosuvastatin Calcium (Crestor) 20 mg PO HS [facility] Last Admin: 12/06/17 22:10 Dose: 20 mg Tiotropium [place] (Spiriva Inhalation Handihaler Device) 1 inhaler INH RQD [facility] Tiotropium [place] (Spiriva) 18 mcg INH RQ24 [facility] Torsemide (Demadex) 20 mg PO BID [facility] Last Admin: 12/06/17 10:37 Dose: 20 mg Zolpidem Tartrate (Ambien) 5 mg PO HS [facility] Last Admin: 12/06/17 22:10 Dose: 5 mg - Labs Labs: 12/07/17 11:18 12/07/17 11:18 Attending/Attestation - Attestation I have personally seen and examined this patient.: Yes I have fully participated in the care of the patient.: Yes I have reviewed all pertinent clinical information, including history, physical exam and plan: Yes Notes (Text): Patient was seen and examined ,no headache,no nausea,no vomting Patient wants talk to her health physics technician about getting Epogen. We will consider epogen after blood pressure control Her blood is not controlled Systolic remains high Her clonidine and hydralazine dose was increased Now she is on hydralazine 100mg q6h,clonidine 0.3mg tid,coreg 25 bid,losartan 50mg daily Torsemide held Getting hydration planning for CT with contrasts to see renal arteries to rule out renal artery stenosis. Discuss with Dr Rosales we will follow with Dr Rosales Monitor blood pressure D/W resident and I agree with the documentation of the assessment and the plan.
[2017-12-07] MEDS: (Novolog) Insulin Aspart, Recombinant 100 u/ml 10 ml vial SC SCH ×4 (08:09→21:55)
--- NOTE | 2017-12-07 09:04 | CP.PCM.PN ---
<Bunny Amaya - Last Filed: 12/07/17 09:40> Objective - Vital Signs/Intake and Output Vital Signs (last 24 hours): Temp Pulse Resp BP Pulse Ox 98.2 F 66 20 210/77 H 97 12/07/17 07:29 12/07/17 07:29 12/07/17 07:29 12/07/17 07:29 12/07/17 07:29 Intake and Output: 12/07/17 12/07/17 06:59 18:59 Intake Total 50 Balance 50 - Medications Medications: Current Medications Aspirin (Ecotrin) 81 mg PO DAILY [facility] Last Admin: 12/06/17 11:30 Dose: 81 mg Carvedilol (Coreg) 25 mg PO BID [facility] Last Admin: 12/06/17 17:39 Dose: 25 mg Clonidine HCl (Catapres) 0.3 mg PO TID [facility] Last Admin: 12/07/17 08:15 Dose: 0.3 mg Dextrose (Dextrose 50% Inj) 50 ml IVP ONCE PRN PRN Reason: Hypoglycemia Dextrose (Dextrose 50% Inj) 0 ml IV STAT PRN; Protocol PRN Reason: Hypoglycemia Protocol Dextrose (Glutose 15) 0 gm PO ONCE PRN; Protocol PRN Reason: Hypoglycemia Protocol Divalproex Sodium (Depakote Dr) 500 mg PO BID [facility] Last Admin: 12/06/17 17:39 Dose: 500 mg Ergocalciferol (Drisdol 50,000 Intl Units Cap) 1 cap PO QWK [facility] Last Admin: 12/06/17 10:36 Dose: 1 cap Glucagon (Glucagen Diagnostic Kit) 0 mg IM STAT PRN; Protocol PRN Reason: Hypoglycemia Protocol Hydralazine HCl (Apresoline) 50 mg PO Q6H [facility] Last Admin: 12/07/17 05:39 Dose: 50 mg Dextrose (Dextrose 5% In Water 1000 Ml) 1,000 mls @ 0 mls/hr IV .Q0M PRN; Protocol; Per Protocol PRN Reason: Hypoglycemia Protocol Sodium Chloride (Sodium Chloride 0.9%) 1,000 mls @ 75 mls/hr IV .[id number] [facility] Insulin Aspart (Novolog) 0 unit SC ACHS [facility] PRN Reason: Protocol Last Admin: 12/07/17 08:09 Dose: Not Given Losartan Potassium (Cozaar) 50 mg PO DAILY [facility] Last Admin: 12/06/17 10:37 Dose: Not Given Rosuvastatin Calcium (Crestor) 20 mg PO HS [facility] Last Admin: 12/06/17 22:10 Dose: 20 mg Tiotropium Conway (Spiriva Inhalation Handihaler Device) 1 inhaler INH RQD [facility] Tiotropium Conway (Spiriva) 18 mcg INH RQ24 [facility] Torsemide (Demadex) 20 mg PO BID [facility] Last Admin: 12/06/17 10:37 Dose: 20 mg Zolpidem Tartrate (Ambien) 5 mg PO [facility] Last Admin: 12/06/17 22:10 Dose: 5 mg - Labs Labs: 12/06/17 06:26 12/06/17 06:26 Assessment and Plan - Assessment and Plan (Free Text) Assessment: 67 y/o female with PMH of HTN, CAD s/p PTCA with stent placed, CKD IIIB/IV, right renal mass s/p cryoablation admitted for hypertensive urgency s/p colonscopy. Plan: (1) Hypertensive urgency -likely due to medication non-compliance vs renal artery stenosis vs renal mass -BP still uncontrolled 210/77 -250cc of bolus NS given to suppress renin depnedent HTN driven by volume depletion -Clonidine dose increased to 0.3mg TID -hydralazine dose increased to 50mg Q6H -hydralazine 10 mg IVP for SBP > 180 -continue home meds losartan, clonidine, coreg, hydralazine -torsimed held -tristan/renin level pending -continue monitoring closely. goal SBP in 170's-180's (2) Renal mass -CT abdomen showed right renal mass. Previous US few month ago did not show any lesion. -Case discussed with radiologist, mass is heterogenous, likely blood, can follow up with IR as an outpatient. mild right renal artery compression by the mass. -Radiology recommended against CT with contrast because of decreased GFR (now 24) -History of R renal mass s/p cryoablation (3) Anemia in CKD (chronic kidney disease) -H/H stable -Patient was on outpatient EPO (4) CKD (chronic kidney disease) stage 3, GFR 30-59 ml/min -CKD IIIB/IV likely due to diabetes vs renovascular disease -BUN/Cr -Urinalaysis protein 4 -A1C 7 -Maintain renal perfusion and avoid rapid reduction in BP -avoid nephrotoxic agents (5) Chronic kidney disease-mineral and bone disorder -vitamin D level 34.5 -continue Ergocalceferol -PTH pending -electrolytes balanced Case reviewed and discussed with Dr Rosales Further recs as per Dr Rosales <Faraz Rosales - Last Filed: 12/07/17 23:41> Subjective - Date & Time of Evaluation Date of Evaluation: 12/07/17 Time of Evaluation: 12:30 - Subjective Subjective: Patient reportedly feeling well overall; denies any sob, nausea/vomiting; tolerating diet; no dizziness/lightheadedness; urinating more than usual; Objective - Vital Signs/Intake and Output Vital Signs (last 24 hours): Temp Pulse Resp BP Pulse Ox 98.1 F 60 20 183/67 H 96 12/07/17 20:30 12/07/17 22:35 12/07/17 20:30 12/07/17 22:35 12/07/17 21:30 Intake and Output: 12/07/17 12/08/17 18:59 06:59 Intake Total 1500 Balance 1500 - Medications Medications: Current Medications Acetylcysteine (Acetylcysteine 20%) 6 ml PO Q12H [facility] Aspirin (Ecotrin) 81 mg PO DAILY [facility] Last Admin: 12/07/17 10:33 Dose: 81 mg Carvedilol (Coreg) 25 mg PO BID [facility] Last Admin: 12/07/17 18:35 Dose: 25 mg Clonidine HCl (Catapres) 0.3 mg PO TID [facility] Last Admin: 12/07/17 18:35 Dose: 0.3 mg Dextrose (Dextrose 50% Inj) 50 ml IVP ONCE PRN PRN Reason: Hypoglycemia Dextrose (Dextrose 50% Inj) 0 ml IV STAT PRN; Protocol PRN Reason: Hypoglycemia Protocol Dextrose (Glutose 15) 0 gm PO ONCE PRN; Protocol PRN Reason: Hypoglycemia Protocol Divalproex Sodium (Depakote Dr) 500 mg PO BID [facility] Last Admin: 12/07/17 18:36 Dose: 500 mg Docusate Sodium (Colace) 100 mg PO BID [facility] Last Admin: 12/07/17 18:35 Dose: 100 mg Ergocalciferol (Drisdol 50,000 Intl Units Cap) 1 cap PO QWK [facility] Last Admin: 12/06/17 10:36 Dose: 1 cap Glucagon (Glucagen Diagnostic Kit) 0 mg IM STAT PRN; Protocol PRN Reason: Hypoglycemia Protocol Hydralazine HCl (Apresoline) 100 mg PO Q6H [facility] Last Admin: 12/07/17 18:35 Dose: 100 mg Dextrose (Dextrose 5% In Water 1000 Ml) 1,000 mls @ 0 mls/hr IV .Q0M PRN; Protocol; Per Protocol PRN Reason: Hypoglycemia Protocol Sodium Chloride (Sodium Chloride 0.9%) 1,000 mls @ 75 mls/hr IV .[id number] [facility] Last Admin: 12/07/17 18:37 Dose: 75 mls/hr Insulin Aspart (Novolog) 0 unit SC ACHS [facility] PRN Reason: Protocol Last Admin: 12/07/17 21:55 Dose: Not Given Losartan Potassium (Cozaar) 50 mg PO DAILY [facility] Last Admin: 12/07/17 10:30 Dose: 50 mg Rosuvastatin Calcium (Crestor) 20 mg PO [facility] Last Admin: 12/07/17 21:55 Dose: 20 mg Tiotropium Conway (Spiriva Inhalation Handihaler Device) 1 inhaler INH RQD [facility] Tiotropium Conway (Spiriva) 18 mcg INH RQ24 [facility] Torsemide (Demadex) 20 mg PO BID [facility] Last Admin: 12/06/17 10:37 Dose: 20 mg Zolpidem Tartrate (Ambien) 5 mg PO [facility] Last Admin: 12/07/17 21:55 Dose: 5 mg - Labs Labs: 12/07/17 11:18 12/07/17 11:18 - Constitutional Appears: Non-toxic, No Acute Distress - ENT Exam ENT Exam: Mucous Membranes Moist - Respiratory Exam Respiratory Exam: Clear to Ausculation Bilateral. absent: Respiratory Distress - Cardiovascular Exam Cardiovascular Exam: RRR, +S1, +S2. absent: Gallop, JVD - GI/Abdominal Exam GI & Abdominal Exam: Soft, Tenderness - Extremities Exam Additional comments: 2+ b/l lower leg edema (chronic); - Neurological Exam Neurological Exam: Alert, Awake - Psychiatric Exam Psychiatric exam: Normal Mood. absent: Agitated - Skin Skin Exam: Warm. absent: Cyanosis Assessment and Plan (1) Hypertensive urgency Assessment & Plan: Still with markedly uncontrolled BP despite being on 4 anti-htn agents; diuretics being held temporarily and being given IVF for possible volume depletion from pressure natiuresis; Concern for renal artery stenosis discussed with IR attending today, especially with BP still uncontrolled; will obtain CTA to properly assess; renal artery duplex done previously could not adequately visualize renal arteries; -clonidine dose increased to 0.3 mg tid, hydralazine increased to 100 mg q6h; continue losartan 50 mg daily and coreg 25 mg bid; -NS at 75 cc/hr, acetylcysteine, to minimize risk of contrast nephropathy; -will restart diuretics after contrast study; goal SBP for now should be in 160' s; Status: Acute (2) CKD (chronic kidney disease) stage 3, GFR 30-59 ml/min Assessment & Plan: Fluctuations in serum creatinine likely hemodynamically mediated but overall stable renal function during this admission; again had detailed discussion with patient about risk of progression of CKD with uncontrolled htn which outweighs the temporary risk of a contrast study; patient is agreeable for contrast study to assess HOPE; see above; Status: Chronic (3) Renal mass Assessment & Plan: Likely hemorrhagic cyst but will monitor periodically with imaging; Status: Acute (4) Anemia in CKD (chronic kidney disease) Assessment & Plan: Hgb currently stable; patient gets EPO injections with hematology; will hold off on further injections for now until BP better controlled; Status: Chronic (5) Chronic kidney disease-mineral and bone disorder Status: Chronic
[2017-12-07] MEDS ORDERED: Sodium Chloride 0.9% 1,000 ML IV SCH (09:30)
[2017-12-07] MEDS ORDERED: Potassium Chloride 20 mEq ER Tab PO ONE (10:28)
[2017-12-07] MEDS: Divalproex 500 mg DR Tab PO SCH ×2 (10:30→18:36)
[2017-12-07 11:41] LABS: BASO % 0.5 % (0.0-2.0); EOS # 0.2 K/uL (0.0-0.7); EOS % 3.1 % (0.0-4.0); LYMPH # 1.6 K/uL (1.0-4.3); LYMPH % 27.9 % (20.0-40.0); MEAN CORPUSCULAR HEMOGLOBIN 27.2 pg (27.0-31.0); MONO # 0.4 K/uL (0.0-0.8); MONO % 6.5 % (0.0-10.0); NEUT # 3.5 K/uL (1.8-7.0); NRBC % 0.1 % (0.0-2.0); RBC 3.69 Mil/uL (3.80-5.20); RED CELL DISTRIBUTION WIDTH 22.9 % (11.5-14.5); WHITE BLOOD COUNT 5.6 K/uL (4.8-10.8)
[2017-12-07 12:39] LABS: ALBUMIN 3.2 g/dL (3.5-5.0); CALCIUM 8.4 mg/dl (8.6-10.4)
--- NOTE | 2017-12-07 14:43 | CARD ---
APPROVED REPORT Date of service: 12/05/2017 EKG Measurement Heart [id number] <Conclusion> Sinus rhythm with premature atrial complexes Possible Left atrial enlargement Possible LVH with repolarization abnormality Abnormal ECG
[2017-12-07 15:21] LABS: CREATININE, RANDOM URINE 81.4 mg/dL
[2017-12-07] MEDS: Sodium Chloride 0.9% 1,000 ML IV SCH ×2 (16:57→18:37)
[2017-12-08] MEDS: Sodium Chloride 0.9% 1,000 ML IV SCH ×2 (06:30→13:00)
[2017-12-08 07:37] LABS: BASO % 0.5 % (0.0-2.0); EOS # 0.2 K/uL (0.0-0.7); EOS % 3.7 % (0.0-4.0); HEMOGLOBIN 9.5 g/dL (11.0-16.0); LYMPH # 1.8 K/uL (1.0-4.3); MEAN CORPUSCULAR HEMOGLOBIN 27.6 pg (27.0-31.0); MEAN CORPUSCULAR HGB CONC 32.5 g/dL (33.0-37.0); MONO # 0.5 K/uL (0.0-0.8); MONO % 8.1 % (0.0-10.0); NEUT # 3.5 K/uL (1.8-7.0); NEUT % 57.7 % (50.0-75.0); NRBC % 0.1 % (0.0-2.0); RBC 3.44 Mil/uL (3.80-5.20); RED CELL DISTRIBUTION WIDTH 22.5 % (11.5-14.5); WHITE BLOOD COUNT 6.1 K/uL (4.8-10.8)
--- NOTE | 2017-12-08 07:48 | CP.PCM.PN ---
<Calixto Vasquez - Last Filed: 12/08/17 12:39> Subjective - Date & Time of Evaluation Date of Evaluation: 12/08/17 Time of Evaluation: 07:48 - Subjective Subjective: Calixto Vasquez D.O. PGY-3, Internal Medicine Resident, Nephrology Progress Note 67 year old female with a PMH of HTN, CAD s/p PTCA with stent placed, CKD IIIB/ IV, right renal mass s/p cryoablation who was admitted for hypertensive urgency after an outpatient screening colonscopy. Patient was seen and examined at bedside. Patient states that she is feeling somewhat tired with the medications. No headaches, CP, SOB, or other complaints. Objective - Vital Signs/Intake and Output Vital Signs (last 24 hours): Temp Pulse Resp BP Pulse Ox 98.4 F 67 20 199/79 H 96 12/08/17 04:25 12/08/17 07:10 12/08/17 07:10 12/08/17 07:10 12/08/17 04:25 - Medications Medications: Current Medications Acetylcysteine (Acetylcysteine 20%) 6 ml PO Q12H [facility] Aspirin (Ecotrin) 81 mg PO DAILY [facility] Last Admin: 12/07/17 10:33 Dose: 81 mg Carvedilol (Coreg) 25 mg PO BID [facility] Last Admin: 12/07/17 18:35 Dose: 25 mg Clonidine HCl (Catapres) 0.3 mg PO Q8H [facility] Last Admin: 12/08/17 07:13 Dose: 0.3 mg Dextrose (Dextrose 50% Inj) 50 ml IVP ONCE PRN PRN Reason: Hypoglycemia Dextrose (Dextrose 50% Inj) 0 ml IV STAT PRN; Protocol PRN Reason: Hypoglycemia Protocol Dextrose (Glutose 15) 0 gm PO ONCE PRN; Protocol PRN Reason: Hypoglycemia Protocol Divalproex Sodium (Depakote Dr) 500 mg PO BID [facility] Last Admin: 12/07/17 18:36 Dose: 500 mg Docusate Sodium (Colace) 100 mg PO BID [facility] Last Admin: 12/07/17 18:35 Dose: 100 mg Ergocalciferol (Drisdol 50,000 Intl Units Cap) 1 cap PO QWK [facility] Last Admin: 12/06/17 10:36 Dose: 1 cap Glucagon (Glucagen Diagnostic Kit) 0 mg IM STAT PRN; Protocol PRN Reason: Hypoglycemia Protocol Hydralazine HCl (Apresoline) 100 mg PO Q6H [facility] Last Admin: 12/08/17 05:26 Dose: 100 mg Dextrose (Dextrose 5% In Water 1000 Ml) 1,000 mls @ 0 mls/hr IV .Q0M PRN; Protocol; Per Protocol PRN Reason: Hypoglycemia Protocol Sodium Chloride (Sodium Chloride 0.9%) 1,000 mls @ 75 mls/hr IV .[id number] [facility] Last Admin: 12/08/17 06:30 Dose: 75 mls/hr Insulin Aspart (Novolog) 0 unit SC ACHS [facility] PRN Reason: Protocol Last Admin: 12/07/17 21:55 Dose: Not Given Losartan Potassium (Cozaar) 50 mg PO DAILY [facility] Last Admin: 12/07/17 10:30 Dose: 50 mg Rosuvastatin Calcium (Crestor) 20 mg PO HS [facility] Last Admin: 12/07/17 21:55 Dose: 20 mg Tiotropium Downey (Spiriva Inhalation Handihaler Device) 1 inhaler INH RQD [facility] Tiotropium Downey (Spiriva) 18 mcg INH RQ24 [facility] Torsemide (Demadex) 20 mg PO BID [facility] Last Admin: 12/06/17 10:37 Dose: 20 mg Zolpidem Tartrate (Ambien) [address] [facility] Last Admin: 12/07/17 21:55 Dose: 5 mg - Labs Labs: 12/08/17 07:31 12/07/17 11:18 - Constitutional Appears: Well, Non-toxic, No Acute Distress - Head Exam Head Exam: ATRAUMATIC, NORMOCEPHALIC - Eye Exam Eye Exam: absent: Scleral icterus Additional comments: Left eye blindness - ENT Exam ENT Exam: Mucous Membranes Moist, Normal Oropharynx - Neck Exam Neck Exam: absent: Tenderness, Thyromegaly - Respiratory Exam Respiratory Exam: Clear to Ausculation Bilateral. absent: Rales, Rhonchi, Wheezes - Cardiovascular Exam Cardiovascular Exam: RRR, +S1, +S2, Murmur (2/6 holosystolic) - GI/Abdominal Exam GI & Abdominal Exam: Soft, Normal Bowel Sounds. absent: Distended, Tenderness - Extremities Exam Extremities Exam: Pedal Edema (+2). absent: Calf Tenderness - Neurological Exam Neurological Exam: Alert, Awake, Oriented x3 - Psychiatric Exam Psychiatric exam: Normal Affect, Normal Mood - Skin Skin Exam: Dry, Warm Assessment and Plan (1) Hypertensive urgency Status: Acute (2) Renal mass Status: Acute (3) Anemia in CKD (chronic kidney disease) Status: Chronic (4) CKD (chronic kidney disease) stage 3, GFR 30-59 ml/min Status: Chronic (5) Chronic kidney disease-mineral and bone disorder Status: Chronic - Assessment and Plan (Free Text) Assessment: 67 year old female with a PMH of HTN, CAD s/p PTCA with stent placed, CKD IIIB/ IV, right renal mass s/p cryoablation who was admitted for hypertensive urgency after an outpatient screening colonscopy. Plan: Patient's records from her outpatient physician Dr. Jhony Olivas MD were reviewed Patient did have cryoablation of renal cell carcinoma in September of 2011 and followed with urology Pablo Andrade DO in [place] and was having regular follow up renal US without issues Last office BP on 10/24/17 office visit for colonoscopy risk stratification she had a BP of 170/[address] be having CT angiography today to evaluate for possible renal artery stenosis Discussed at length with patient, she confirms that she does NOT have an allergy to dye and as such this has been removed from her chart by me, patient was only worried because her upholstery tech Dr. Flo Robb MD had mentioned that he was worried about giving her IV dye during a cardiac cath Of note, patient is also NOT allergic to morphine, she had fatigue and felt unwell after a large dose of morphine and this has been edited in the chart as well Modified diet to include carb consistent as she is diabetic and has been receiving high glycemic index foods Blood pressures remain elevated, her clonidine was increased today to 0.3mg TID , continue with carvedilol/losartan/hydralazine Holding torsemide until after we have the results of the CTA Has been receiving IV for possible renin dependent HTN in setting of volume depletion, tristan/renin still pending Malik Ca 9.0 Goal BP should be 170s systolic, will be adding norvasc 5mg po qd Patient was seen and examined and case was discussed with Dr. Rosales <Faraz Rosales - Last Filed: 12/09/17 00:05> Objective - Vital Signs/Intake and Output Vital Signs (last 24 hours): Temp Pulse Resp BP Pulse Ox 98.0 F 61 20 196/73 H 96 12/08/17 15:00 12/08/17 20:00 12/08/17 15:00 12/08/17 20:12 12/08/17 15:00 - Medications Medications: Current Medications Acetylcysteine (Acetylcysteine 20%) 6 ml PO Q12H [facility] Amlodipine Besylate (Norvasc) 10 mg PO DAILY [facility] Aspirin (Ecotrin) 81 mg PO DAILY [facility] Last Admin: 12/08/17 09:38 Dose: 81 mg Carvedilol (Coreg) 25 mg PO BID [facility] Last Admin: 12/08/17 17:59 Dose: 25 mg Clonidine HCl (Catapres) 0.3 mg PO Q8H [facility] Last Admin: 12/08/17 22:00 Dose: 0.3 mg Dextrose (Dextrose 50% Inj) 50 ml IVP ONCE PRN PRN Reason: Hypoglycemia Dextrose (Dextrose 50% Inj) 0 ml IV STAT PRN; Protocol PRN Reason: Hypoglycemia Protocol Dextrose (Glutose 15) 0 gm PO ONCE PRN; Protocol PRN Reason: Hypoglycemia Protocol Divalproex Sodium (Depakote Dr) 500 mg PO BID [facility] Last Admin: 12/08/17 17:59 Dose: 500 mg Docusate Sodium (Colace) 100 mg PO BID [facility] Last Admin: 12/08/17 17:59 Dose: 100 mg Ergocalciferol (Drisdol 50,000 Intl Units Cap) 1 cap PO QWK [facility] Last Admin: 12/06/17 10:36 Dose: 1 cap Glucagon (Glucagen Diagnostic Kit) 0 mg IM STAT PRN; Protocol PRN Reason: Hypoglycemia Protocol Hydralazine HCl (Apresoline) 100 mg PO Q6H [facility] Last Admin: 12/08/17 18:00 Dose: 100 mg Insulin Aspart (Novolog) 0 unit SC ACHS [facility] PRN Reason: Protocol Last Admin: 12/08/17 23:01 Dose: Not Given Losartan Potassium (Cozaar) 50 mg PO DAILY [facility] Last Admin: 12/08/17 09:38 Dose: 50 mg Rosuvastatin Calcium (Crestor) 20 mg PO HS [facility] Last Admin: 12/08/17 22:00 Dose: 20 mg Spironolactone (Aldactone) 25 mg PO BID [facility] Last Admin: 12/08/17 20:12 Dose: 25 mg Tiotropium Downey (Spiriva Inhalation Handihaler Device) 1 inhaler INH RQD [facility] Tiotropium Downey (Spiriva) 18 mcg INH RQ24 [facility] Torsemide (Demadex) 20 mg PO BID [facility] Last Admin: 12/06/17 10:37 Dose: 20 mg Zolpidem Tartrate (Ambien) 5 mg PO HS [facility] Last Admin: 12/08/17 22:00 Dose: 5 mg - Labs Labs: 12/08/17 07:31 12/08/17 07:31 Assessment and Plan (1) Hypertensive urgency Status: Acute (2) CKD (chronic kidney disease) stage 3, GFR 30-59 ml/min Status: Chronic (3) Renal mass Status: Acute (4) Anemia in CKD (chronic kidney disease) Status: Chronic (5) Chronic kidney disease-mineral and bone disorder Status: Chronic Attending/Attestation - Attestation I have personally seen and examined this patient.: Yes I have fully participated in the care of the patient.: Yes I have reviewed all pertinent clinical information, including history, physical exam and plan: Yes Notes (Text): Patient seen and examined; I agree with the resident's note as above with following additions/edits: Patient with htn, DM, CAD s/p stent, CHF w/ preserved EF, RCC s/p cryoablation ( involving R kidney), admitted with hypertensive urgency; CTA done this afternoon to look for evidence of renal artery stenosis in the setting of markedly elevated BP; report mentioning moderate stenosis involving artery leading to R kidney; IR to review images before deciding on whether intervention is of benefit; Otherwise, BP still uncontrolled despite increasing doses of meds; norvasc 10 mg added today; adding aldactone 25 mg bid as well; will restart loop diuretics , giving lasix IV 40 mg this evening; IVF stopped; Renal function stable, will monitor tomorrow to look for evidence of contrast induced nephropathy; if renal function still stable, can increase losartan to 100 mg daily; continue to avoid nephrotoxic agents; Chronic anemia from CKD noted; hgb relatively stable, holding off on further EPO until BP controlled; Regarding new R renal mass, high suspicion for hemorrhagic cyst, will monitor as outpatient;
[2017-12-08 08:02] LABS: ALB/GLOB RATIO 1.2 (1.0-2.1); CALCIUM 8.2 mg/dl (8.6-10.4)
[2017-12-08] MEDS: (Novolog) Insulin Aspart, Recombinant 100 u/ml 10 ml vial SC SCH ×4 (08:30→23:01)
[2017-12-08] MEDS: Divalproex 500 mg DR Tab PO SCH ×2 (09:38→17:59)
--- NOTE | 2017-12-08 10:12 | CP.PCM.PN ---
<Elkin Ardon - Last Filed: 12/08/17 10:27> Subjective - Date & Time of Evaluation Date of Evaluation: 12/08/17 Time of Evaluation: 10:03 - Subjective Subjective: PGY-[address] Gomes Patient seen and examined at bedside. Patient still complaining of constipation and abdominal pain. Patient slept well overnight, is tolerating PO meals. Patient denies any headaches, nausea, vomiting, dysuria, dizziness. Patient will go for CT angio abd/pelvis today to assess for possible renal artery stenosis. BP has remained elevated in 190s/70s overnight and this morning. Objective - Vital Signs/Intake and Output Vital Signs (last 24 hours): Temp Pulse Resp BP Pulse Ox 97.7 F 62 18 193/78 H 99 12/08/17 08:00 12/08/17 09:35 12/08/17 08:00 12/08/17 09:38 12/08/17 08:00 Intake and Output: 12/08/17 12/08/17 06:59 18:59 Intake Total 600 Balance 600 - Medications Medications: Current Medications Acetylcysteine (Acetylcysteine 20%) 6 ml PO Q12H [facility] Aspirin (Ecotrin) 81 mg PO DAILY [facility] Last Admin: 12/08/17 09:38 Dose: 81 mg Carvedilol (Coreg) 25 mg PO BID [facility] Last Admin: 12/08/17 09:38 Dose: 25 mg Clonidine HCl (Catapres) 0.3 mg PO Q8H [facility] Last Admin: 12/08/17 07:13 Dose: 0.3 mg Dextrose (Dextrose 50% Inj) 50 ml IVP ONCE PRN PRN Reason: Hypoglycemia Dextrose (Dextrose 50% Inj) 0 ml IV STAT PRN; Protocol PRN Reason: Hypoglycemia Protocol Dextrose (Glutose 15) 0 gm PO ONCE PRN; Protocol PRN Reason: Hypoglycemia Protocol Divalproex Sodium (Depakote Dr) 500 mg PO BID [facility] Last Admin: 12/08/17 09:38 Dose: 500 mg Docusate Sodium (Colace) 100 mg PO BID [facility] Last Admin: 12/08/17 09:38 Dose: 100 mg Ergocalciferol (Drisdol 50,000 Intl Units Cap) 1 cap PO QWK [facility] Last Admin: 12/06/17 10:36 Dose: 1 cap Glucagon (Glucagen Diagnostic Kit) 0 mg IM STAT PRN; Protocol PRN Reason: Hypoglycemia Protocol Hydralazine HCl (Apresoline) 100 mg PO Q6H [facility] Last Admin: 12/08/17 05:26 Dose: 100 mg Dextrose (Dextrose 5% In Water 1000 Ml) 1,000 mls @ 0 mls/hr IV .Q0M PRN; Protocol; Per Protocol PRN Reason: Hypoglycemia Protocol Sodium Chloride (Sodium Chloride 0.9%) 1,000 mls @ 75 mls/hr IV .[id number] [facility] Last Admin: 12/08/17 06:30 Dose: 75 mls/hr Insulin Aspart (Novolog) 0 unit SC ACHS [facility] PRN Reason: Protocol Last Admin: 12/08/17 08:30 Dose: Not Given Losartan Potassium (Cozaar) 50 mg PO DAILY [facility] Last Admin: 12/08/17 09:38 Dose: 50 mg Rosuvastatin Calcium (Crestor) 20 mg PO [facility] Last Admin: 12/07/17 21:55 Dose: 20 mg Tiotropium [place] (Spiriva Inhalation Handihaler Device) 1 inhaler INH RQD [facility] Tiotropium [place] (Spiriva) 18 mcg INH RQ24 [facility] Torsemide (Demadex) 20 mg PO BID [facility] Last Admin: 12/06/17 10:37 Dose: 20 mg Zolpidem Tartrate (Ambien) 5 mg PO [facility] Last Admin: 12/07/17 21:55 Dose: 5 mg - Labs Labs: 12/08/17 07:31 12/08/17 07:31 - Head Exam Head Exam: ATRAUMATIC, NORMAL INSPECTION, NORMOCEPHALIC - Eye Exam Eye Exam: EOMI, Normal appearance Pupil Exam: NORMAL ACCOMODATION, PERRL - Respiratory Exam Respiratory Exam: Clear to Ausculation Bilateral, NORMAL BREATHING PATTERN - Cardiovascular Exam Cardiovascular Exam: REGULAR RHYTHM, +S1, +S2. absent: Murmur - GI/Abdominal Exam GI & Abdominal Exam: Soft, Tenderness, Normal Bowel Sounds Additional comments: +diffuse abdominal tenderness to light palpation - Extremities Exam Additional comments: +b/l 1+ pitting pedal edema to below the knee - Neurological Exam Neurological Exam: Alert, Awake, CN II-XII Intact, Oriented x3 - Skin Skin Exam: Dry, Intact, Normal Color, Warm Assessment and Plan - Assessment and Plan (Free Text) Assessment: 1) Hypertensive Urgency -Nephro consulted: d/w Dr. Rosales - help appreciated * On admission, Pt received .2 mg clonidine stat overnight for BP 210s/70s * SBP remained in 210s after her .2mg clonidine routine dose this morning. Changed to .3mg Clonidine TID with first dose started this morning. Will consider increasing her Losartan if BP continues to remain elevated. Continue to monitor BP * restarted home medications * Goal 170/80 * BP today 190s/70s * possible renal artery stenosis * f/u AM labs, electrolytes, plasma Renin, plasma Aldosterone * CT head negative * CT Abd/Pelvis: R interpolar heterogenous hyperdense mass - per nephro, likely hemorrhagic cyst but will continue to monitor with periodic imaging * Pt to go for CT angio Abd/Pelvis today to assess for suspected renal artery stenosis * Per Dr. Rosales, will plan to DC once BP stabilizes. - Coreg 25mg po bid - Clonidine .3mg TID - Hydralazine increased to 100mg q6 - Losartan 50mg po daily - Torsemide 20mg po bid - ASA 81 daily 2) Bilateral lower extremity swelling - restarted home Torsemide 20mg 3) Hyperlipidemia - home Rosuvastatin 20mg po HS 4) Diabetes Mellitus, type 2 - Accucheck ACHS - ISS moderate - hypoglycemia protocol - f/u Hgb A1c - holding other home diabetes Rx 5) Chronic Kidney Disease, Stage 3b - GFR from 12/06: 24 - avoid nephrotoxic agents - K 4.0 6) Chronic Obstructive Pulmonary Disease - home Spiriva 18mcg INH daily 7) CAD s/p stents - ASA 81mg po daily - ACEi/ARB contraindicated 2/2 kidney function, poss HOPE 8) Constipation -Colace 100 mg PO BID -MR BM was 9) PPX GI: not indicated DVT: contraindicated 2/2 recent surgery with Bx taken - Cont home Depakote 500mg po bid - Cont home Ergocalciferol 1 cap po q7d - Cont Zolpidem 5mg po HS - IVF: not indicated - HHD, renal non dialysis diet d/w Dr. Mireya Ardon PGY-1 <Sebastian Gomes - Last Filed: 12/10/17 17:20> Objective - Vital Signs/Intake and Output Vital Signs (last 24 hours): Temp Pulse Resp BP Pulse Ox 98.7 F 65 20 163/71 H 96 12/10/17 07:20 12/10/17 07:51 12/10/17 07:20 12/10/17 09:25 12/10/17 07:20 Intake and Output: 12/10/17 12/10/17 06:59 18:59 Intake Total 700 Output Total 350 Balance 350 - Medications Medications: Current Medications Amlodipine Besylate (Norvasc) 10 mg PO DAILY [facility] Last Admin: 12/10/17 09:25 Dose: 10 mg Aspirin (Ecotrin) 81 mg PO DAILY [facility] Last Admin: 12/10/17 09:25 Dose: 81 mg Carvedilol (Coreg) 25 mg PO BID [facility] Last Admin: 12/10/17 09:25 Dose: 25 mg Clonidine HCl (Catapres) 0.3 mg PO Q8H [facility] Last Admin: 12/10/17 06:36 Dose: 0.3 mg Dextrose (Dextrose 50% Inj) 50 ml IVP ONCE PRN PRN Reason: Hypoglycemia Dextrose (Dextrose 50% Inj) 0 ml IV STAT PRN; Protocol PRN Reason: Hypoglycemia Protocol Dextrose (Glutose 15) 0 gm PO ONCE PRN; Protocol PRN Reason: Hypoglycemia Protocol Divalproex Sodium (Depakote Dr) 500 mg PO BID [facility] Last Admin: 12/10/17 09:28 Dose: 500 mg Docusate Sodium (Colace) 100 mg PO BID [facility] Last Admin: 12/10/17 09:25 Dose: 100 mg Ergocalciferol (Drisdol 50,000 Intl Units Cap) 1 cap PO QWK [facility] Last Admin: 12/06/17 10:36 Dose: 1 cap Glucagon (Glucagen Diagnostic Kit) 0 mg IM STAT PRN; Protocol PRN Reason: Hypoglycemia Protocol Hydralazine HCl (Apresoline) 100 mg PO Q6H [facility] Last Admin: 12/10/17 11:16 Dose: 100 mg Insulin Aspart (Novolog) 0 unit SC ACHS [facility] PRN Reason: Protocol Last Admin: 12/10/17 12:41 Dose: Not Given Losartan Potassium (Cozaar) 100 mg PO DAILY [facility] Last Admin: 12/10/17 09:25 Dose: 100 mg Rosuvastatin Calcium (Crestor) 20 mg PO HS [facility] Last Admin: 12/09/17 22:06 Dose: 20 mg Spironolactone (Aldactone) 25 mg PO BID [facility] Last Admin: 12/10/17 09:25 Dose: 25 mg Tiotropium [place] (Spiriva Inhalation Handihaler Device) 1 inhaler INH RQD [facility] Tiotropium [place] (Spiriva) 18 mcg INH RQ24 [facility] Last Admin: 12/10/17 07:15 Dose: Not Given Torsemide (Demadex) 20 mg PO BID [facility] Last Admin: 12/10/17 09:25 Dose: 20 mg Zolpidem Tartrate (Ambien) 5 mg PO HS [facility] Last Admin: 12/09/17 22:05 Dose: 5 mg - Labs Labs: 12/09/17 07:58 12/09/17 07:58 Attending/Attestation - Attestation I have personally seen and examined this patient.: Yes I have fully participated in the care of the patient.: Yes I have reviewed all pertinent clinical information, including history, physical exam and plan: Yes Notes (Text): patient was seen and examined by me No complain.sitting on bed,has chronic leg edema. Denies pain. discussed about her CT angio report with Dr Connie Rosales explained about the out patient follow up. We will continue current antihypertensives Assessment and the plan discussed
--- NOTE | 2017-12-08 15:58 | CT ---
Date of service: 12/08/2017 PROCEDURE: CT Angiography abdomen and pelvis with Contrast HISTORY: rule out renal artery stenosis COMPARISON: CT scan of the abdomen pelvis dated 12/05/2017. TECHNIQUE: Technique: CT angiography of the abdomen and pelvis performed in the arterial phase of enhancement. Coronal and sagittal reformats, and well as rotating MIP images of the vessels generated at the workstation. Intravenous contrast dose: 100 mL Visipaque 320 Radiation dose: Total exam DLP = 1151.2 mGy-cm. FINDINGS: LOWER THORAX: Cardiomegaly. Coronary arterial and valvular calcifications. No focal consolidation. Small bilateral pleural effusions. Left lower lobe scarring. LIVER: Unremarkable. No gross lesion or ductal dilatation. GALLBLADDER AND BILE DUCTS: Unremarkable. PANCREAS: Unremarkable. No gross lesion or ductal dilatation. SPLEEN: Unremarkable. ADRENALS: Unremarkable. No mass. KIDNEYS AND URETERS: Right interpolar 3.9 x 3.5 x 3.9 cm heterogeneously enhancing mass. Exophytic left lower pole 2.5 x 2.6 x 2.0 cm cyst. No hydronephrosis. No solid mass. VASCULATURE: Calcific atherosclerosis causing [id number] celiac ostial stenosis. 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 Calcific and noncalcific plaque causing moderate proximal right renal artery stenosis. Left renal artery widely patent. No aortic aneurysm. BOWEL: Small sigmoid submucosal lipoma. No obstruction. No gross mural thickening. APPENDIX: No findings to suggest acute appendicitis. PERITONEUM: Fat containing umbilical hernia. No free fluid. No free air. LYMPH NODES: Unremarkable. No enlarged lymph nodes. BLADDER: Unremarkable. REPRODUCTIVE: Unremarkable. BONES: No acute fracture. Multilevel spinal degenerative changes. OTHER FINDINGS: None. IMPRESSION: Calcific and noncalcific plaque causing moderate proximal right renal artery stenosis. Left renal artery widely patent. 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 Calcific atherosclerosis causing [id number] celiac ostial stenosis. New small bilateral pleural effusions. Heterogeneously enhancing right interpolar 3.[address]/MRI ( "Renal mass protocol" ) can be obtained for further characterization, as previously recommended. Additional stable findings as above.
[2017-12-08 16:22] VITALS: RESP 20
[2017-12-09 08:10] LABS: BASO % 0.3 % (0.0-2.0); EOS # 0.2 K/uL (0.0-0.7); EOS % 3.9 % (0.0-4.0); HEMOGLOBIN 9.4 g/dL (11.0-16.0); LYMPH # 1.6 K/uL (1.0-4.3); LYMPH % 28.6 % (20.0-40.0); MEAN CELL VOLUME 84.3 fL (81.0-99.0); MEAN CORPUSCULAR HEMOGLOBIN 27.8 pg (27.0-31.0); MEAN PLATELET VOLUME 9.1 fL (7.2-11.7); MONO # 0.4 K/uL (0.0-0.8); MONO % 7.8 % (0.0-10.0); NEUT # 3.4 K/uL (1.8-7.0); NEUT % 59.4 % (50.0-75.0); RBC 3.4 Mil/uL (3.80-5.20); RED CELL DISTRIBUTION WIDTH 22.4 % (11.5-14.5); WHITE BLOOD COUNT 5.7 K/uL (4.8-10.8)
[2017-12-09] MEDS: Tiotropium 18 mcg Cap For Inhalation INH SCH (08:15)
[2017-12-09] MEDS: (Novolog) Insulin Aspart, Recombinant 100 u/ml 10 ml vial SC SCH ×4 (08:17→21:59)
[2017-12-09 08:35] LABS: ALB/GLOB RATIO 1.1 (1.0-2.1); ALBUMIN 3.1 g/dL (3.5-5.0); CALCIUM 8.8 mg/dl (8.6-10.4)
--- NOTE | 2017-12-09 08:59 | CP.PCM.PN ---
Subjective - Date & Time of Evaluation Date of Evaluation: 12/09/17 Time of Evaluation: 08:55 - Subjective Subjective: Calixto Vasquez D.O. PGY-3, Internal Medicine Resident, Nephrology Progress Note 67 year old female with a PMH of HTN, CAD s/p stent, HFpEF, RCC s/p cryoablation of R kidney, who was admitted for hypertensive urgency after an outpatient screening colonoscopy. Patient was seen and examined sitting up at bedside. Patient states that she has noticed she has been having more slurred speech since her incident during the colonoscopy and would like speech therapy. Otherwise no complaints. Objective - Vital Signs/Intake and Output Vital Signs (last 24 hours): Temp Pulse Resp BP Pulse Ox 98.0 F 88 20 192/75 H 97 12/08/17 23:10 12/09/17 08:12 12/08/17 23:10 12/09/17 06:32 12/08/17 23:10 - Medications Medications: Current Medications Acetylcysteine (Acetylcysteine 20%) 6 ml PO Q12H [facility] Amlodipine Besylate (Norvasc) 10 mg PO DAILY [facility] Aspirin (Ecotrin) 81 mg PO DAILY [facility] Last Admin: 12/08/17 09:38 Dose: 81 mg Carvedilol (Coreg) 25 mg PO BID [facility] Last Admin: 12/08/17 17:59 Dose: 25 mg Clonidine HCl (Catapres) 0.3 mg PO Q8H [facility] Last Admin: 12/09/17 08:00 Dose: 0.3 mg Dextrose (Dextrose 50% Inj) 50 ml IVP ONCE PRN PRN Reason: Hypoglycemia Dextrose (Dextrose 50% Inj) 0 ml IV STAT PRN; Protocol PRN Reason: Hypoglycemia Protocol Dextrose (Glutose 15) 0 gm PO ONCE PRN; Protocol PRN Reason: Hypoglycemia Protocol Divalproex Sodium (Depakote Dr) 500 mg PO BID [facility] Last Admin: 12/08/17 17:59 Dose: 500 mg Docusate Sodium (Colace) 100 mg PO BID [facility] Last Admin: 12/08/17 17:59 Dose: 100 mg Ergocalciferol (Drisdol 50,000 Intl Units Cap) 1 cap PO QWK [facility] Last Admin: 12/06/17 10:36 Dose: 1 cap Glucagon (Glucagen Diagnostic Kit) 0 mg IM STAT PRN; Protocol PRN Reason: Hypoglycemia Protocol Hydralazine HCl (Apresoline) 100 mg PO Q6H [facility] Last Admin: 12/09/17 06:32 Dose: 100 mg Insulin Aspart (Novolog) 0 unit SC ACHS [facility] PRN Reason: Protocol Last Admin: 12/09/17 08:17 Dose: Not Given Losartan Potassium (Cozaar) 50 mg PO DAILY [facility] Last Admin: 12/08/17 09:38 Dose: 50 mg Rosuvastatin Calcium (Crestor) 20 mg PO [facility] Last Admin: 12/08/17 22:00 Dose: 20 mg Spironolactone (Aldactone) 25 mg PO BID [facility] Last Admin: 12/08/17 20:12 Dose: 25 mg Tiotropium [place] (Spiriva Inhalation Handihaler Device) 1 inhaler INH RQD [facility] Tiotropium [place] (Spiriva) 18 mcg INH RQ24 [facility] Last Admin: 12/09/17 08:15 Dose: 18 mcg Torsemide (Demadex) 20 mg PO BID [facility] Last Admin: 12/06/17 10:37 Dose: 20 mg Zolpidem Tartrate (Ambien) 5 mg PO [facility] Last Admin: 12/08/17 22:00 Dose: 5 mg - Labs Labs: 12/09/17 07:58 12/09/17 07:58 - Constitutional Appears: Well, Non-toxic, No Acute Distress - Head Exam Head Exam: ATRAUMATIC, NORMOCEPHALIC - Eye Exam Eye Exam: absent: Scleral icterus Additional comments: Left eye blindness - ENT Exam ENT Exam: Mucous Membranes Moist, Normal Oropharynx - Neck Exam Neck Exam: absent: Tenderness, Thyromegaly - Respiratory Exam Respiratory Exam: Clear to Ausculation Bilateral. absent: Rales, Rhonchi, Wheezes - Cardiovascular Exam Cardiovascular Exam: RRR, +S1, +S2, Murmur (2/6 holosystolic) - GI/Abdominal Exam GI & Abdominal Exam: Soft, Normal Bowel Sounds. absent: Distended, Tenderness - Extremities Exam Extremities Exam: Pedal Edema (+2). absent: Calf Tenderness - Neurological Exam Neurological Exam: Alert, Awake, Oriented x4, mild dysarthria - Psychiatric Exam Psychiatric exam: Normal Affect, Normal Mood - Skin Skin Exam: Dry, Warm Assessment and Plan (1) Right renal artery stenosis Status: Acute (2) Hypertensive urgency Status: Acute (3) Renal mass Status: Acute (4) Anemia in CKD (chronic kidney disease) Status: Chronic (5) CKD (chronic kidney disease) stage 3, GFR 30-59 ml/min Status: Chronic (6) Chronic kidney disease-mineral and bone disorder Status: Chronic - Assessment and Plan (Free Text) Assessment: 67 year old female with a PMH of HTN, CAD s/p PTCA with stent placed, CKD IIIB/ IV, right renal mass s/p cryoablation who was admitted for hypertensive urgency after an outpatient screening colonscopy. Plan: CTA showed moderate right renal artery stenosis Pending IR evaluation of images to determine if intervention could be of benefit BUN and Cr improved today slightly, now off IVF BP still uncontrolled, given that BUN and Cr stable after dye study we will increase her losartan to 100mg PO QD and give a stat dose of lasix 40mg IVP Added aldactone 25mg BID and norvasc 10mg PO QD yesterday Re-started her torsemide 20mg po BID Continue with hydralazine and clonidine Continue to avoid nephrotoxic agents Chronic anemia in setting of CKD stable, no active bleeding and HD stable R renal mass very likely hemorrhagic cyst Renin and tristan pending Patient was seen and examined and case was discussed at length with attending physician Dr. Rosales Thank you for the pleasure of participating in the care of this patient
[2017-12-09] MEDS: Divalproex 500 mg DR Tab PO SCH ×2 (10:12→18:31)
[2017-12-09] MEDS: Acetylcysteine 20% Inhal Soln (4ml) PO SCH ×2 (11:06→22:35)
--- NOTE | 2017-12-09 16:49 | CT ---
Date of service: 12/09/2017 PROCEDURE: CT HEAD WITHOUT CONTRAST. HISTORY: Slurred speech COMPARISON: CT head dated 12/06/2017. TECHNIQUE: Axial computed tomography images were obtained through the head/brain without intravenous contrast. Radiation dose: Total exam DLP = 987.8 mGy-cm. This CT exam was performed using one or more of the following dose reduction techniques: Automated exposure control, adjustment of the mA and/or kV according to patient size, and/or use of iterative reconstruction technique. FINDINGS: HEMORRHAGE: No intracranial hemorrhage. BRAIN: No mass effect or edema. Atrophy. Chronic microvascular ischemic changes. Left basal ganglia and thalamic lacunar infarctions redemonstrated. VENTRICLES: Unremarkable. No hydrocephalus. CALVARIUM: Unremarkable. PARANASAL SINUSES: Unremarkable as visualized. No significant inflammatory changes. MASTOID AIR CELLS: Unremarkable as visualized. No inflammatory changes. OTHER FINDINGS: Dysmorphic left globe with coarse calcification. IMPRESSION: No acute intracranial pathology. Age-related changes. No significant interval change.
--- NOTE | 2017-12-09 19:37 | CP.PCM.DIS ---
<Elkin Ardon - Last Filed: 12/09/17 19:07> Provider - Provider Date of Admission: 12/09/17 13:12 Attending physician: Sebastian Gomes MD Primary care physician: Jhony Olivas MD Time Spent in preparation of Discharge (in minutes): 45 Diagnosis - Discharge Diagnosis (1) Hypertensive urgency Status: Acute (2) Right renal artery stenosis Status: Acute Hospital Course - Lab Results Lab Results: Most Recent Lab Values WBC 5.7 K/uL (4.8-10.8) 12/09/17 07:58 RBC 3.40 Mil/uL (3.80-5.20) L 12/09/17 07:58 Hgb 9.4 g/dL (11.0-16.0) L 12/09/17 07:58 Hct 28.6 % (34.0-47.0) L 12/09/17 07:58 MCV 84.3 fL (81.0-99.0) 12/09/17 07:58 MCH 27.8 pg (27.0-31.0) 12/09/17 07:58 MCHC 33.0 g/dL (33.0-37.0) 12/09/17 07:58 RDW 22.4 % (11.5-14.5) H 12/09/17 07:58 Plt Count 328 K/uL (130-400) 12/09/17 07:58 MPV 9.1 fL (7.2-11.7) 12/09/17 07:58 Neut % (Auto) 59.4 % (50.0-75.0) 12/09/17 07:58 Lymph % (Auto) 28.6 % (20.0-40.0) 12/09/17 07:58 Camp % (Auto) 7.8 % (0.0-10.0) 12/09/17 07:58 Eos % (Auto) 3.9 % (0.0-4.0) 12/09/17 07:58 Baso % (Auto) 0.3 % (0.0-2.0) 12/09/17 07:58 Neut # (Auto) 3.4 K/uL (1.8-7.0) 12/09/17 07:58 Lymph # (Auto) 1.6 K/uL (1.0-4.3) 12/09/17 07:58 Camp # (Auto) 0.4 K/uL (0.0-0.8) 12/09/17 07:58 Eos # (Auto) 0.2 K/uL (0.0-0.7) 12/09/17 07:58 Baso # (Auto) 0.0 K/uL (0.0-0.2) 12/09/17 07:58 Sodium 143 mmol/L (132-148) 12/09/17 07:58 Potassium 4.1 mmol/L (3.6-5.2) 12/09/17 07:58 Chloride 109 mmol/L (98-107) H 12/09/17 07:58 Carbon Dioxide 25 mmol/L (22-30) 12/09/17 07:58 Anion Gap 13 (10-20) 12/09/17 07:58 BUN 33 mg/dL (7-17) H 12/09/17 07:58 Creatinine 1.7 mg/dL (0.7-1.2) H 12/09/17 07:58 Est GFR ( Amer) 36 12/09/17 07:58 Est GFR (Non-Af Amer) 30 12/09/17 07:58 POC Glucose (mg/dL) 148 mg/dL (65-110) H 12/09/17 15:40 Random Glucose 103 mg/dL (65-105) 12/09/17 07:58 Hemoglobin A1c 7.0 % (4.2-6.5) H 12/06/17 06:26 Calcium 8.8 mg/dl (8.6-10.4) 12/09/17 07:58 Phosphorus 3.3 mg/dL (2.5-4.5) 12/09/17 07:58 Magnesium 1.8 mg/dL (1.6-2.3) 12/09/17 07:58 Total Bilirubin 0.2 mg/dL (0.2-1.3) 12/09/17 07:58 AST 20 U/L (14-36) 12/09/17 07:58 ALT 19 U/L (9-52) 12/09/17 07:58 Alkaline Phosphatase 63 U/L (38-126) 12/09/17 07:58 Troponin I 0.0780 ng/mL (0.00-0.120) 12/05/17 19:42 Total Protein 5.9 g/dL (6.3-8.3) L 12/09/17 07:58 Albumin 3.1 g/dL (3.5-5.0) L 12/09/17 07:58 Globulin 2.8 gm/dL (2.2-3.9) 12/09/17 07:58 Albumin/Globulin Ratio 1.1 (1.0-2.1) 12/09/17 07:58 25-OH Vitamin D Total 34.9 NG/ML (30.0-100.0) 12/06/17 06:26 PTH Intact Whole Molec 94 pg/mL (14-64) H 12/06/17 06:26 Urine Color Yellow (YELLOW) 12/06/17 07:24 Urine Clarity Clear (Clear) 12/06/17 07:24 Urine pH 6.0 (5.0-8.0) 12/06/17 07:24 Ur Specific [place] 1.010 (1.003-1.030) 12/06/17 07:24 Urine Protein 3+ mg/dL (NEGATIVE) H 12/06/17 07:24 Urine Glucose (UA) Normal mg/dL (Normal) 12/06/17 07:24 Urine Ketones Negative mg/dL (NEGATIVE) 12/06/17 07:24 Urine Blood Negative (NEGATIVE) 12/06/17 07:24 Urine Nitrate Negative (NEGATIVE) 12/06/17 07:24 Urine Bilirubin Negative (NEGATIVE) 12/06/17 07:24 Urine Urobilinogen Normal mg/dL (0.2-1.0) 12/06/17 07:24 Ur Leukocyte Esterase Neg Rashad/uL (Negative) 12/06/17 07:24 Urine WBC (Auto) 1 /hpf (0-5) 12/06/17 07:24 Urine RBC (Auto) 2 /hpf (0-3) 12/06/17 07:24 Ur Squamous Epith Cells 1 /hpf (0-5) 12/06/17 07:24 Urine Bacteria Mod (<OCC) H 12/06/17 07:24 Hyaline Casts 0-2 /lpf (0-2) 12/06/17 07:24 Ur Random Creatinine 81.4 mg/dL 12/07/17 14:27 Ur Random Sodium 33 mmol/L 12/07/17 14:27 Ur Random Urea Nitrogn 516 mg/dL 12/07/17 14:27 - Hospital Course Hospital Course: HPI Patient is a 67 yo F with PMH of HTN, DM, HLD, cardiac cath with 2 stent who was in the hospital for a routine colonoscopy when she was noted to have BP in the 220's/90's. Patient was given labetolol and hydralazine with no improvement in BP. Colonoscopy with polypectomy with no difficulty. Patient was given a second dose of hydralazine after procedure with no improvement in BP. Patient reports improvement in headache which started this morning after a verbal altercation with her tank driver. Patient reports taking some of her medication this morning at 4 am including her Coreg, Hydralazine and valsartan, but not other blood pressure medication. Patient denies any worsening headache, dizziness, vomiting, shortness of breath, chest pain, altered mental status or seizures. 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 Patient admits mild heart burn, mild nausea and mild diffuse abdominal discomfort. Patient reports her BP runs in the 140-150's when she takes her medications. PMH: HTN, DM, HLD, TIAx2, right kidney carcinoma with 1/2 resection in 2009 PSxH: cardiac cath with stentx2 2016, left shoulder rotator cuff 02/25 PSH: No tobacco, no EtOH, no illicit drugs, lives alone in senior [facility] facility, worked as a nurse Meds: Spiriva, Hydralazine, Breo, Coreg, Clonidine, Depakote, Albuterol, Torsemide, Procrit, Vitamind D2, Folic acid, Ambien, [place]-3 fatty acid, ASA, Crestor Allergies: Morphine- anaphylaxis, Levofloxacin- rash Family history: mother DM, ESRD with dialysis, father at 39 from "blood disorder" Code: full PMD: [place] Hospital Course: Patient presented on 12/05 for abnormally high BP of 220s/90s found during a routine colonoscopy. Pt did have a headache on admission, which improved. Throughout the remainder her hospitalization, patient remained largely asymptomatic except for abdominal pain and constipation, thought to be most likely related to her recent colonoscopy. She did have b/l lower extremity edema which was a chronic complaint. Patient was treated for HTN with hydralazine, clonidine, and amlodipine. She also received individual doses of labetolol, and loop diuretics for more acute control. 12/05 colonoscopy: non bleeding Grade I internal hemorrhoids. 4 mm sessile polyp in mid sigmoid colon- removed with a cold snare and retrieved. 2 additional sessile polyps in the transverse colon that were 8 to 10 mm in size which were removed with a hot snare but not retrieved. Per Nephro (Dr. Rosales), renal artery stenosis was suspected and CT imaging was performed to assess for potential renal etiology of resistant HTN CT abd/pelvis 12/05 CT abdomen & pelvis: right kidney interpolar heterogeneously hyperdense mass. No evidence of hematoma or pericolonic stranding. * Mass largely unchanged on correlation with prior studies, most likely representing a benign cystic lesion. 12/[address]: no hemorrhage or mass effect 12/07 CTA abdomen & pelvis: Calcific and noncalcific plaque causing right renal artery stenosis. Left renal artery widely patent. 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 Patient was discharged with plans to follow up for renal artery stent placement with vascular as outpatient. Blood pressure was managed largely per chaya, Dr. Rosales. Patient was sent home with new blood pressure medications with plan for follow up as outpatient, and meds will be adjusted once she receives stent. Pt is to check blood pressure when she is home and update Dr. Rosales with blood pressures prior to follow up. Patient did have complaints of slurred speech prior to discharge which she said had been new since colonoscopy. She does have some slurred speech chronically, however states it had gotten work acutely. CT of head was performed to rule out stroke as symptoms supposedly had been ongoing for several days. 12/09 CT head: Negative for acute pathology Pt was discharged with plans for f/u as stated. Plan: Patient has been cleared for discharge per Dr. Gomes. Patient is to follow up with Dr. Olivas upon discharge. Patient is to follow up with Dr. Rosales in one week. Referral is provided for patient. Patient is to check her blood pressure over the weekend and call Dr. Rosales's office with the results. Patient is discharged with the following new medications: Hydralazine 100mg PO q8 Losartan 100mg PO q8 Spirololactone 25 mg PO BID Depsukilsd16 mg BID Norvasc 10mg daily Clonidine .3mg Q8 Coreg 25 mg BID Patient is discharged with home care with retirement for disease and medication management. Please return to the emergency department if symptoms worsen. - Date & Time of H&P Date of H&P: 12/05/17 Discharge Exam - Head Exam Head Exam: ATRAUMATIC, NORMOCEPHALIC - Eye Exam Eye Exam: EOMI, Normal appearance Pupil Exam: NORMAL ACCOMODATION, PERRL - Respiratory Exam Respiratory Exam: NORMAL BREATHING PATTERN, UNREMARKABLE - Cardiovascular Exam Cardiovascular Exam: REGULAR RHYTHM, +S1, +S2 - GI/Abdominal Exam GI & Abdominal Exam: Normal Bowel Sounds, Unremarkable - Extremities Exam Additional comments: +b/l chronic LE swelling - Neurological Exam Neurological exam: Alert, CN II-XII Intact, Normal Gait, Oriented x3 - Skin Skin Exam: Dry, Intact, Normal Color, Warm Discharge Plan - Discharge Medications Prescriptions: amLODIPine [Norvasc] 10 mg PO DAILY #30 tab Aspirin [Aspirin EC] 81 mg PO DAILY #30 tablet. Atorvastatin Calcium 40 mg PO DAILY #30 tablet Carvedilol [Coreg] 25 mg PO BID #60 tab cloNIDine [Catapres] 0.3 mg PO Q8H #90 tab Docusate Sodium [Colace] 100 mg PO BID #28 capsule hydrALAZINE [Apresoline] 25 mg PO Q8 #30 tab Losartan [Cozaar] 100 mg PO DAILY #30 tab Spironolactone [Aldactone] 25 mg PO BID #60 tab Torsemide [Demadex] 20 mg PO BID #60 tab - Follow Up Plan Condition: GOOD Disposition: HOME/ ROUTINE Patient education suggested?: Yes Instructions: High Blood Pressure Emergencies Additional Instructions: Patient has been cleared for discharge per Dr. Gomes. Patient is to follow up with Dr. Olivas upon discharge. Patient is to follow up with Dr. Rosales in one week. Referral is provided for patient. Patient is to check her blood pressure over the weekend and call Dr. Rosales's office with the results. Patient is discharged with the following new medications: Hydralazine 100mg PO q8 Losartan 100mg PO q8 Spirololactone 25 mg PO BID [id number] mg BID Norvasc 10mg daily Clonidine .3mg Q8 Coreg 25 mg BID Patient is discharged with home care with retirement for disease and medication management. Please return to the emergency department if symptoms worsen. Referrals: Jhony Olivas MD [Primary Care Provider] - <Sebastian Gomes - Last Filed: 12/10/17 17:22> Provider - Provider Date of Admission: 12/09/17 13:12 Attending physician: Sebastian Gomes MD Primary care physician: Jhony Olivas MD Hospital Course - Lab Results Lab Results: Most Recent Lab Values WBC 5.7 K/uL (4.8-10.8) 12/09/17 07:58 RBC 3.40 Mil/uL (3.80-5.20) L 12/09/17 07:58 Hgb 9.4 g/dL (11.0-16.0) L 12/09/17 07:58 Hct 28.6 % (34.0-47.0) L 12/09/17 07:58 MCV 84.3 fL (81.0-99.0) 12/09/17 07:58 MCH 27.8 pg (27.0-31.0) 12/09/17 07:58 MCHC 33.0 g/dL (33.0-37.0) 12/09/17 07:58 RDW 22.4 % (11.5-14.5) H 12/09/17 07:58 Plt Count 328 K/uL (130-400) 12/09/17 07:58 MPV 9.1 fL (7.2-11.7) 12/09/17 07:58 Neut % (Auto) 59.4 % (50.0-75.0) 12/09/17 07:58 Lymph % (Auto) 28.6 % (20.0-40.0) 12/09/17 07:58 Camp % (Auto) 7.8 % (0.0-10.0) 12/09/17 07:58 Eos % (Auto) 3.9 % (0.0-4.0) 12/09/17 07:58 Baso % (Auto) 0.3 % (0.0-2.0) 12/09/17 07:58 Neut # (Auto) 3.4 K/uL (1.8-7.0) 12/09/17 07:58 Lymph # (Auto) 1.6 K/uL (1.0-4.3) 12/09/17 07:58 Camp # (Auto) 0.4 K/uL (0.0-0.8) 12/09/17 07:58 Eos # (Auto) 0.2 K/uL (0.0-0.7) 12/09/17 07:58 Baso # (Auto) 0.0 K/uL (0.0-0.2) 12/09/17 07:58 Sodium 143 mmol/L (132-148) 12/09/17 07:58 Potassium 4.1 mmol/L (3.6-5.2) 12/09/17 07:58 Chloride 109 mmol/L (98-107) H 12/09/17 07:58 Carbon Dioxide 25 mmol/L (22-30) 12/09/17 07:58 Anion Gap 13 (10-20) 12/09/17 07:58 BUN 33 mg/dL (7-17) H 12/09/17 07:58 Creatinine 1.7 mg/dL (0.7-1.2) H 12/09/17 07:58 Est GFR ( Amer) 36 12/09/17 07:58 Est GFR (Non-Af Amer) 30 12/09/17 07:58 POC Glucose (mg/dL) 104 mg/dL (65-110) 12/10/17 06:11 Random Glucose 103 mg/dL (65-105) 12/09/17 07:58 Hemoglobin A1c 7.0 % (4.2-6.5) H 12/06/17 06:26 Calcium 8.8 mg/dl (8.6-10.4) 12/09/17 07:58 Phosphorus 3.3 mg/dL (2.5-4.5) 12/09/17 07:58 Magnesium 1.8 mg/dL (1.6-2.3) 12/09/17 07:58 Total Bilirubin 0.2 mg/dL (0.2-1.3) 12/09/17 07:58 AST 20 U/L (14-36) 12/09/17 07:58 ALT 19 U/L (9-52) 12/09/17 07:58 Alkaline Phosphatase 63 U/L (38-126) 12/09/17 07:58 Troponin I 0.0780 ng/mL (0.00-0.120) 12/05/17 19:42 Total Protein 5.9 g/dL (6.3-8.3) L 12/09/17 07:58 Albumin 3.1 g/dL (3.5-5.0) L 12/09/17 07:58 Globulin 2.8 gm/dL (2.2-3.9) 12/09/17 07:58 Albumin/Globulin Ratio 1.1 (1.0-2.1) 12/09/17 07:58 Renin 2.13 ng/mL/h (0.25-5.82) 12/06/17 06:26 Aldosterone 2 ng/dL 12/06/17 06:26 Aldosterone/Renin Ratio 0.7 Ratio (0.9-28.9) L 12/06/17 06:26 25-OH Vitamin D Total 34.9 NG/ML (30.0-100.0) 12/06/17 06:26 PTH Intact Whole Molec 94 pg/mL (14-64) H 12/06/17 06:26 Urine Color Yellow (YELLOW) 12/06/17 07:24 Urine Clarity Clear (Clear) 12/06/17 07:24 Urine pH 6.0 (5.0-8.0) 12/06/17 07:24 Ur Specific [place] 1.010 (1.003-1.030) 12/06/17 07:24 Urine Protein 3+ mg/dL (NEGATIVE) H 12/06/17 07:24 Urine Glucose (UA) Normal mg/dL (Normal) 12/06/17 07:24 Urine Ketones Negative mg/dL (NEGATIVE) 12/06/17 07:24 Urine Blood Negative (NEGATIVE) 12/06/17 07:24 Urine Nitrate Negative (NEGATIVE) 12/06/17 07:24 Urine Bilirubin Negative (NEGATIVE) 12/06/17 07:24 Urine Urobilinogen Normal mg/dL (0.2-1.0) 12/06/17 07:24 Ur Leukocyte Esterase Neg Rashad/uL (Negative) 12/06/17 07:24 Urine WBC (Auto) 1 /hpf (0-5) 12/06/17 07:24 Urine RBC (Auto) 2 /hpf (0-3) 12/06/17 07:24 Ur Squamous Epith Cells 1 /hpf (0-5) 12/06/17 07:24 Urine Bacteria Mod (<OCC) H 12/06/17 07:24 Hyaline Casts 0-2 /lpf (0-2) 12/06/17 07:24 Ur Random Creatinine 81.4 mg/dL 12/07/17 14:27 Ur Random Sodium 33 mmol/L 12/07/17 14:27 Ur Random Urea Nitrogn 516 mg/dL 12/07/17 14:27 Attending/Attestation - Attestation I have personally seen and examined this patient.: Yes I have fully participated in the care of the patient.: Yes I have reviewed all pertinent clinical information, including history, physical exam and plan: Yes Notes (Text): Patient was seen and examined. Discussed about her medication and CT brain report Plan discussed with the resident.Discharge medication list discussed with DR Rosales
[2017-12-10 02:22] LABS: ALDO/PRA RATIO 0.7 Ratio (0.9-28.9)
[2017-12-10] MEDS: Tiotropium 18 mcg Cap For Inhalation INH SCH (07:15)
[2017-12-10] MEDS: (Novolog) Insulin Aspart, Recombinant 100 u/ml 10 ml vial SC SCH ×2 (07:29→12:41)
[2017-12-10 07:54] VITALS: PULSE 65
[2017-12-10 08:49] VITALS: TEMP 98.7; O2SAT 96
[2017-12-10 09:26] VITALS: BP 163/71
[2017-12-10] MEDS: Divalproex 500 mg DR Tab PO SCH (09:28)
[2017-12-10] MEDS ORDERED: Epoetin Alfa 10,000 unit/ml Dialysis SC ONE (11:00)
--- NOTE | 2017-12-10 12:20 | CP.PCM.PN ---
Objective - Vital Signs/Intake and Output Vital Signs (last 24 hours): Temp Pulse Resp BP Pulse Ox 98.7 F 65 20 163/71 H 96 12/10/17 07:20 12/10/17 07:51 12/10/17 07:20 12/10/17 09:25 12/10/17 07:20 Intake and Output: 12/10/17 12/10/17 06:59 18:59 Intake Total 700 Output Total 350 Balance 350 - Medications Medications: Current Medications Amlodipine Besylate (Norvasc) 10 mg PO DAILY [facility] Last Admin: 12/10/17 09:25 Dose: 10 mg Aspirin (Ecotrin) 81 mg PO DAILY [facility] Last Admin: 12/10/17 09:25 Dose: 81 mg Carvedilol (Coreg) 25 mg PO BID [facility] Last Admin: 12/10/17 09:25 Dose: 25 mg Clonidine HCl (Catapres) 0.3 mg PO Q8H [facility] Last Admin: 12/10/17 06:36 Dose: 0.3 mg Dextrose (Dextrose 50% Inj) 50 ml IVP ONCE PRN PRN Reason: Hypoglycemia Dextrose (Dextrose 50% Inj) 0 ml IV STAT PRN; Protocol PRN Reason: Hypoglycemia Protocol Dextrose (Glutose 15) 0 gm PO ONCE PRN; Protocol PRN Reason: Hypoglycemia Protocol Divalproex Sodium (Depakote Dr) 500 mg PO BID [facility] Last Admin: 12/10/17 09:28 Dose: 500 mg Docusate Sodium (Colace) 100 mg PO BID [facility] Last Admin: 12/10/17 09:25 Dose: 100 mg Ergocalciferol (Drisdol 50,000 Intl Units Cap) 1 cap PO QWK [facility] Last Admin: 12/06/17 10:36 Dose: 1 cap Glucagon (Glucagen Diagnostic Kit) 0 mg IM STAT PRN; Protocol PRN Reason: Hypoglycemia Protocol Hydralazine HCl (Apresoline) 100 mg PO Q6H [facility] Last Admin: 12/10/17 11:16 Dose: 100 mg Insulin Aspart (Novolog) 0 unit SC ACHS [facility] PRN Reason: Protocol Last Admin: 12/10/17 07:29 Dose: Not Given Losartan Potassium (Cozaar) 100 mg PO DAILY [facility] Last Admin: 12/10/17 09:25 Dose: 100 mg Rosuvastatin Calcium (Crestor) 20 mg PO HS [facility] Last Admin: 12/09/17 22:06 Dose: 20 mg Spironolactone (Aldactone) 25 mg PO BID [facility] Last Admin: 12/10/17 09:25 Dose: 25 mg Tiotropium [place] (Spiriva Inhalation Handihaler Device) 1 inhaler INH RQD NIDIA Tiotropium [place] (Spiriva) 18 mcg INH RQ24 [facility] Last Admin: 12/09/17 08:15 Dose: 18 mcg Torsemide (Demadex) 20 mg PO BID [facility] Last Admin: 12/10/17 09:25 Dose: 20 mg Zolpidem Tartrate (Ambien) 5 mg PO [facility] Last Admin: 12/09/17 22:05 Dose: 5 mg - Labs Labs: 12/09/17 07:58 12/09/17 07:58 Assessment and Plan (1) Hypertensive urgency Status: Acute (2) CKD (chronic kidney disease) stage 3, GFR 30-59 ml/min Status: Chronic (3) Renal mass Status: Acute (4) Anemia in CKD (chronic kidney disease) Status: Chronic (5) Chronic kidney disease-mineral and bone disorder Status: Chronic
--- NOTE | 2017-12-10 16:23 | CP.PCM.PN ---
<Elkin Ardon - Last Filed: 12/10/17 16:26> Subjective - Date & Time of Evaluation Date of Evaluation: 12/10/17 Time of Evaluation: 16:16 - Subjective Subjective: Patient seen and examined at bedside. Patient was cleared to be discharged yesterday but stayed overnight. Pt still complaining of constipation, was prescribed Miralax 13g in 8oz water for constipation. I explained to patient that she had been medically cleared for discharge. Pt still complaining of abdominal pain and constipation, but these are the same complaints she has been having. Patient agreed to go home today with prescription for Miralax. Pt denies chest pain, diarrhea, headache, dizziness. Objective - Vital Signs/Intake and Output Vital Signs (last 24 hours): Temp Pulse Resp BP Pulse Ox 98.7 F 65 20 163/71 H 96 12/10/17 07:20 12/10/17 07:51 12/10/17 07:20 12/10/17 09:25 12/10/17 07:20 Intake and Output: 12/10/17 12/10/17 06:59 18:59 Intake Total 700 Output Total 350 Balance 350 - Medications Medications: Current Medications Amlodipine Besylate (Norvasc) 10 mg PO DAILY [facility] Last Admin: 12/10/17 09:25 Dose: 10 mg Aspirin (Ecotrin) 81 mg PO DAILY [facility] Last Admin: 12/10/17 09:25 Dose: 81 mg Carvedilol (Coreg) 25 mg PO BID [facility] Last Admin: 12/10/17 09:25 Dose: 25 mg Clonidine HCl (Catapres) 0.3 mg PO Q8H [facility] Last Admin: 12/10/17 06:36 Dose: 0.3 mg Dextrose (Dextrose 50% Inj) 50 ml IVP ONCE PRN PRN Reason: Hypoglycemia Dextrose (Dextrose 50% Inj) 0 ml IV STAT PRN; Protocol PRN Reason: Hypoglycemia Protocol Dextrose (Glutose 15) 0 gm PO ONCE PRN; Protocol PRN Reason: Hypoglycemia Protocol Divalproex Sodium (Depakote Dr) 500 mg PO BID [facility] Last Admin: 12/10/17 09:28 Dose: 500 mg Docusate Sodium (Colace) 100 mg PO BID [facility] Last Admin: 12/10/17 09:25 Dose: 100 mg Ergocalciferol (Drisdol 50,000 Intl Units Cap) 1 cap PO QWK [facility] Last Admin: 12/06/17 10:36 Dose: 1 cap Glucagon (Glucagen Diagnostic Kit) 0 mg IM STAT PRN; Protocol PRN Reason: Hypoglycemia Protocol Hydralazine HCl (Apresoline) 100 mg PO Q6H [facility] Last Admin: 12/10/17 11:16 Dose: 100 mg Insulin Aspart (Novolog) 0 unit SC ACHS [facility] PRN Reason: Protocol Last Admin: 12/10/17 12:41 Dose: Not Given Losartan Potassium (Cozaar) 100 mg PO DAILY [facility] Last Admin: 12/10/17 09:25 Dose: 100 mg Rosuvastatin Calcium (Crestor) 20 mg PO HS [facility] Last Admin: 12/09/17 22:06 Dose: 20 mg Spironolactone (Aldactone) 25 mg PO BID [facility] Last Admin: 12/10/17 09:25 Dose: 25 mg Tiotropium Pocola (Spiriva Inhalation Handihaler Device) 1 inhaler INH RQD [facility] Tiotropium Pocola (Spiriva) 18 mcg INH RQ24 [facility] Last Admin: 12/10/17 07:15 Dose: Not Given Torsemide (Demadex) 20 mg PO BID [facility] Last Admin: 12/10/17 09:25 Dose: 20 mg Zolpidem Tartrate (Ambien) 5 mg PO HS [facility] Last Admin: 12/09/17 22:05 Dose: 5 mg - Labs Labs: 12/09/17 07:58 12/09/17 07:58 - Head Exam Head Exam: ATRAUMATIC, NORMAL INSPECTION - Eye Exam Eye Exam: EOMI, Normal appearance - ENT Exam ENT Exam: Mucous Membranes Moist - Respiratory Exam Respiratory Exam: Clear to Ausculation Bilateral, NORMAL BREATHING PATTERN - GI/Abdominal Exam GI & Abdominal Exam: Soft, Tenderness, Normal Bowel Sounds Additional comments: +mild diffuse abdominal tenderness - Extremities Exam Extremities Exam: Full ROM, Normal Capillary Refill, Pedal Edema - Neurological Exam Neurological Exam: Alert, Awake, CN II-XII Intact, Normal Gait, Oriented x3 - Psychiatric Exam Psychiatric exam: Normal Affect, Normal Mood - Skin Skin Exam: Dry, Intact, Normal Color, Warm Assessment and Plan (1) Hypertensive urgency Status: Acute (2) Right renal artery stenosis Status: Acute - Assessment and Plan (Free Text) Assessment: 1) Hypertensive Urgency -Nephro consulted: d/w Dr. Rosales - help appreciated * On admission, Pt received .2 mg clonidine stat overnight for BP 210s/70s * SBP remained in 210s after her .2mg clonidine routine dose this morning. Changed to .3mg Clonidine TID with first dose started this morning. Will consider increasing her Losartan if BP continues to remain elevated. Continue to monitor BP * restarted home medications * Goal 170/80 * BP today 190s/70s * possible renal artery stenosis * f/u AM labs, electrolytes, plasma Renin, plasma Aldosterone * CT head negative * CT Abd/Pelvis: R interpolar heterogenous hyperdense mass - per nephro, likely hemorrhagic cyst but will continue to monitor with periodic imaging * Pt to go for CT angio Abd/Pelvis today to assess for suspected renal artery stenosis * Per Dr. Rosales, will plan to DC once BP stabilizes. - Coreg 25mg po bid - Clonidine .3mg TID - Hydralazine increased to 100mg q6 - Losartan 50mg po daily - Torsemide 20mg po bid - ASA 81 daily 2) Bilateral lower extremity swelling - restarted home Torsemide 20mg 3) Hyperlipidemia - home Rosuvastatin 20mg po HS 4) Diabetes Mellitus, type 2 - Accucheck ACHS - ISS moderate - hypoglycemia protocol - f/u Hgb A1c - holding other home diabetes Rx 5) Chronic Kidney Disease, Stage 3b - GFR from 12/06: 24 - avoid nephrotoxic agents - K 4.0 6) Chronic Obstructive Pulmonary Disease - home Spiriva 18mcg INH daily 7) CAD s/p stents - ASA 81mg po daily - ACEi/ARB contraindicated 2/2 kidney function, poss HOPE 8) Constipation -Colace 100 mg PO BID -discharged with Rx for Miralax 13 g in H2O <Sebastian Gomes - Last Filed: 12/10/17 17:15> Objective - Vital Signs/Intake and Output Vital Signs (last 24 hours): Temp Pulse Resp BP Pulse Ox 98.7 F 65 20 163/71 H 96 12/10/17 07:20 12/10/17 07:51 12/10/17 07:20 12/10/17 09:25 12/10/17 07:20 Intake and Output: 12/10/17 12/10/17 06:59 18:59 Intake Total 700 Output Total 350 Balance 350 - Medications Medications: Current Medications Amlodipine Besylate (Norvasc) 10 mg PO DAILY [facility] Last Admin: 12/10/17 09:25 Dose: 10 mg Aspirin (Ecotrin) 81 mg PO DAILY [facility] Last Admin: 12/10/17 09:25 Dose: 81 mg Carvedilol (Coreg) 25 mg PO BID [facility] Last Admin: 12/10/17 09:25 Dose: 25 mg Clonidine HCl (Catapres) 0.3 mg PO Q8H [facility] Last Admin: 12/10/17 06:36 Dose: 0.3 mg Dextrose (Dextrose 50% Inj) 50 ml IVP ONCE PRN PRN Reason: Hypoglycemia Dextrose (Dextrose 50% Inj) 0 ml IV STAT PRN; Protocol PRN Reason: Hypoglycemia Protocol Dextrose (Glutose 15) 0 gm PO ONCE PRN; Protocol PRN Reason: Hypoglycemia Protocol Divalproex Sodium (Depakote Dr) 500 mg PO BID [facility] Last Admin: 12/10/17 09:28 Dose: 500 mg Docusate Sodium (Colace) 100 mg PO BID [facility] Last Admin: 12/10/17 09:25 Dose: 100 mg Ergocalciferol (Drisdol 50,000 Intl Units Cap) 1 cap PO QWK [facility] Last Admin: 12/06/17 10:36 Dose: 1 cap Glucagon (Glucagen Diagnostic Kit) 0 mg IM STAT PRN; Protocol PRN Reason: Hypoglycemia Protocol Hydralazine HCl (Apresoline) 100 mg PO Q6H [facility] Last Admin: 12/10/17 11:16 Dose: 100 mg Insulin Aspart (Novolog) 0 unit SC ACHS [facility] PRN Reason: Protocol Last Admin: 12/10/17 12:41 Dose: Not Given Losartan Potassium (Cozaar) 100 mg PO DAILY [facility] Last Admin: 12/10/17 09:25 Dose: 100 mg Rosuvastatin Calcium (Crestor) 20 mg PO HS [facility] Last Admin: 12/09/17 22:06 Dose: 20 mg Spironolactone (Aldactone) 25 mg PO BID [facility] Last Admin: 12/10/17 09:25 Dose: 25 mg Tiotropium Pocola (Spiriva Inhalation Handihaler Device) 1 inhaler INH RQD [facility] Tiotropium Pocola (Spiriva) 18 mcg INH RQ24 [facility] Last Admin: 12/10/17 07:15 Dose: Not Given Torsemide (Demadex) 20 mg PO BID [facility] Last Admin: 12/10/17 09:25 Dose: 20 mg Zolpidem Tartrate (Ambien) 5 mg PO HS [facility] Last Admin: 12/09/17 22:05 Dose: 5 mg - Labs Labs: 12/09/17 07:58 12/09/17 07:58 Attending/Attestation - Attestation I have personally seen and examined this patient.: Yes I have fully participated in the care of the patient.: Yes I have reviewed all pertinent clinical information, including history, physical exam and plan: Yes Notes (Text): Ptderik was seen and examined yesterday and today. Yesterday she wanted to see a speech therapist and was complaining of slurred speech. She was having this on and off slurred speech since her TIA /years. She has clear speech and focal weakness. Yesterday she was requesting to discharge her on Tuesday. patient was told that she will get visiting RN service to help to organize her medication and check BP. patient states that she does check her Blood pressure herself.She agrees to follow Dr Rosales for her HTN. D/W CW yesterday and today about her normal CT scan. patient is complaining of constipated. s/p colonoscopy. We will give Miramax and colace as needed. No nausea,no vomiting,not in pain,Tolerating diet Patient is discharged today please see discharge summary and instruction done on 12/09/2017
== END 2017-12-10 16:00 | disposition home or self-care (01) ==
LOC: C.ENDO 06:42 → UNDOADMOB 16:46 → C.9E 16:46 → C.9S 17:34 → C.9E 17:34 → C.6T 17:54 → C.9S 17:54 → INTOOBSV 12-09 13:12 → OBSVTOIN 12-09 13:12 → UNDODISIN 12-10 16:00
PROVIDERS: ADMIT Internal Medicine; ATTEND Internal Medicine
DX: Z12.11 Encounter for screening for malignant neoplasm of colon (principal); C64.1 Malignant neoplasm of right kidney, except renal pelvis; I13.0 Hypertensive heart and chronic kidney disease with heart failure and stage 1 through stage 4 chronic kidney disease, or unspecified chronic kidney disease; K56.699 Other intestinal obstruction unspecified as to partial versus complete obstruction; D12.3 Benign neoplasm of transverse colon; I16.0 Hypertensive urgency; D12.5 Benign neoplasm of sigmoid colon; D63.1 Anemia in chronic kidney disease; E11.22 Type 2 diabetes mellitus with diabetic chronic kidney disease; E11.51 Type 2 diabetes mellitus with diabetic peripheral angiopathy without gangrene; E78.00 Pure hypercholesterolemia, unspecified; E87.6 Hypokalemia; G47.30 Sleep apnea, unspecified; I25.10 Atherosclerotic heart disease of native coronary artery without angina pectoris; I70.1 Atherosclerosis of renal artery; J44.9 Chronic obstructive pulmonary disease, unspecified; N18.3 Chronic kidney disease, stage 3 (moderate); Z95.5 Presence of coronary angioplasty implant and graft; E86.9 Volume depletion, unspecified; I50.9 Heart failure, unspecified; K59.00 Constipation, unspecified; M10.9 Gout, unspecified; H54.40 Blindness, one eye, unspecified eye
CPT/HCPCS: 36415; 45385; 70450; 74175; 74176; 80053; 81001; 82088; 82306; 82570; 82948; 83036; 83735; 83970; 84100; 84244; 84300; 84484; 84540; 85025; 88305; 93005; 94640; 97162; 97530; G0378; G8978; G8979; J0360; J1940; J2704; J3010; J7030; Q4081

== ENCOUNTER 2018-02-23 19:44 | Emergency (ER) | payer MEDICARE ==
[2018-02-23 19:44] VITALS: BMI 36.8
--- NOTE | 2018-02-23 20:06 | C.PDOC ---
History Of Present Illness 67 year old female is brought to the ED by EMS. Patient was stuck at a pharmacy because her transportation never picked her up. Pharmacy called EMS abd patient was brought to the ED. Patient presents no complaints at this time. Patient states she has not taken her blood pressure medication and she is hungry. Patient denies fever, chills, nausea, vomit, headache, CP, SOB, palpitations, rash, weakness, numbness. Time Seen by Provider: 02/23/18 20:02 Chief Complaint (Nursing): High Blood Pressure History Per: Patient History/Exam Limitations: no limitations Onset/Duration Of Symptoms: Hrs Current Symptoms Are (Timing): Gone Quality Of Symptoms: Asymptomatic Exacerbating Factor(s): Pos: Recently Missed Doses Of Medication Recent travel outside of the [place]: No Additional History Per: Patient Past Medical History Reviewed: Historical Data, Nursing Documentation, Vital Signs - Medical History PMH: Anemia (Blood transfusion 2014), Anxiety, Arthritis, Asthma, COPD, Depression, Diabetes, HTN, Hypercholesterolemia, Peripheral Edema (+2 ble pitting), Pneumonia (11 yrs ago), Chronic Kidney Disease, Seizures (LAST AGE 19), Sleep Apnea (cpap), TIA (07/2015 No hospitilization) Denies: Gastrointestinal Ulcer, Hyperthyroidism Surgical History: Coronary Stent, Endoscopy - [facility] Procedures EXCISION OF SIGMOID COLON, ENDO, DIAGN (12/09/17) EXCISION OF TRANSVERSE COLON, ENDO, DIAGN (12/09/17) NEBULIZER THERAPY (01/15/05) SUTURE EXT EAR LAC (10/25/14) VACCINATION NEC (01/01/13) Family History: States: Unknown Family Hx - Social History Hx Alcohol Use: No Hx Substance Use: No - Immunization History Hx Tetanus Toxoid Vaccination: No Hx Influenza Vaccination: Yes Hx Pneumococcal Vaccination: No Review Of Systems Constitutional: Negative for: Fever, Chills Eyes: Negative for: Vision Change Cardiovascular: Negative for: Chest Pain, Palpitations Respiratory: Negative for: Shortness of Breath Gastrointestinal: Negative for: Nausea, Vomiting, Abdominal Pain Skin: Negative for: Rash Neurological: Negative for: Weakness, Numbness, Headache, Dizziness Physical Exam - Physical Exam Appears: Non-toxic, No Acute Distress Skin: Warm, Dry Head: Normacephalic Eye(s): bilateral: Other (blind left eye, chronic decreased vision right eye) Neck: Supple Chest: Symmetrical Cardiovascular: Rhythm Regular Respiratory: No Rales, No Rhonchi, No Wheezing Gastrointestinal/Abdominal: Soft, No Tenderness, No Guarding, No Rebound Extremity: Bilateral: Atraumatic, Normal Color And Temperature, Normal ROM Neurological/Psych: Oriented x3, Normal Speech, Normal Cognition Gait: With Assistance (walker) ED Course And Treatment O2 Sat by Pulse Oximetry: 99 Pulse Ox Interpretation: Normal Progress Note: Plan: - Catapres 0.3 mg PO. - Hydrodiuril 25 mg PO. Pt's ride has arrived. Pt wants to go home. No complaints Reevaluation Time: 00:52 Reassessment Condition: Improved Disposition Counseled Patient/Family Regarding: Studies Performed, Diagnosis, Need For Followup - Disposition Referrals: [facility] [Outside] Disposition: HOME/ ROUTINE Disposition Time: 20:06 Condition: FAIR Forms: [facility] (Tanzanian), General Discharge Instructions - Clinical Impression Clinical Impression: Encounter for medical assessment - Scribe Statement The provider has reviewed the documentation as recorded by the Scribe Lorenzo Leon All medical record entries made by the Scribe were at my direction and personally dictated by me. I have reviewed the chart and agree that the record accurately reflects my personal performance of the history, physical exam, medical decision making, and the department course for this patient. I have also personally directed, reviewed, and agree with the discharge instructions and disposition.
[2018-02-24 00:37] VITALS: BP 203/109
[2018-02-24 00:52] VITALS: O2SAT 99
== END 2018-02-24 01:28 | disposition home or self-care (01) ==
LOC: C.ER 19:44
DX: Z00.00 Encounter for general adult medical examination without abnormal findings (principal)